=== PATIENT | male | born 1960 | race African-American/Black ===

== ENCOUNTER 2017-01-04 22:12 | Emergency (ER) | payer OTHER, SELFPAY ==
[2017-01-05 00:28] LABS: #Basophils 0.1 thou/uL (0.0-0.2); #Eosinphils 0.1 thou/uL (0.0-0.7); #Lymphocytes 1.8 thou/uL (1.20-3.40); #Monocytes 0.4 thou/uL (0.11-0.59); #Neutrophils 3.4 thou/uL (1.40-6.50); %Basophils 1.4 % (0.0-1.0); %Eosinophils 1.9 % (0.0-10.0); %Lymphocytes 31.2 % (21.0-51.0); %Monocytes 7.5 % (0.0-10.0); Hematocrit 32.2 % (42.0-52.0); Red Blood Cell (RBC) Count 3.16 mill/uL (4.70-6.10); White Blood Cell (WBC) Count 5.9 thou/uL (4.8-10.8)
[2017-01-05 00:39] LABS: ALT (SGPT) 12 U/L (8-55); AST (SGOT) 24 U/L (5-34); Alkaline Phosphatase 52 U/L (40-150); Bilirubin, Direct 0.1 mg/dL (0.1-0.3); Bilirubin, Total 0.7 mg/dL (0.2-1.2); Protein, Total 6.7 g/dL (6.0-8.3)
[2017-01-05 00:41] LABS: Lactic Acid - Sepsis 3.4 mmol/L (0.5-2.2)
[2017-01-05 00:43] LABS: ALT (SGPT) 11 U/L (8-55); AST (SGOT) 24 U/L (5-34); Alkaline Phosphatase 51 U/L (40-150); Anion Gap 18 mmol/L (10-20); BUN (Urea Nitrogen) 13 mg/dL (8.4-25.7); Bilirubin, Total 0.7 mg/dL (0.2-1.2); Calc. Creatinine Clearance 0 mL/min (70-130); Calcium 8.7 mg/dL (7.8-10.44); Carbon Dioxide 23 mmol/L (22-29); Chloride 106 mmol/L (98-107); Estimated GFR-MDRD Greater than 90; Globulin 2.9 g/dL (2.4-3.5); Lipase 57 U/L (8-78); Protein, Total 6.6 g/dL (6.0-8.3)
[2017-01-05 00:52] LABS: Troponin I 0.012 ng/mL (< 0.028)
[2017-01-05 03:03] LABS: Bilirubin Negative (Negative); Blood, Urine Negative (Negative); Glucose, Urine (Dipstick) Negative (Negative); Ketone, Urine Negative (Negative); Nitrite Negative (Negative); Protein, Urine (Dipstick) Negative (Neg-Trace)
[2017-01-05 03:24] LABS: Lactic Acid - Sepsis 2.9 mmol/L (0.5-2.2)
--- NOTE | 2017-01-05 08:09 | CT ---
PRELIMINARY REPORT/[facility]/EMERGENCY AFTER HOURS PROCEDURE: EXAM: CT Abdomen and Pelvis With Intravenous Contrast CLINICAL HISTORY: 56 years old, male; Pain; Abdominal pain; Generalized; Patient HX: M56 presents to ed C/O abd pain, onset this afternoon. Pt notes ETOH, last was earlier today x 2-3 drinks. Pt also complains of HTN. Denies bm changes, HX of tobacco use (x 4 daily), cp, drug use, hematochezia, hematuria. ; Additiona l info: Pt uncooperative for exam TECHNIQUE: Axial computed tomography images of the abdomen and pelvis with intravenous contrast. Coronal reformatted images were created and reviewed. CONTRAST: 95 mL of ISOVUE 370 administered intravenously. COMPARISON: No relevant prior studies available. FINDINGS: Lower thorax: No acute findings. ABDOMEN: Liver: Mild hepatomegaly. Gallbladder and bile ducts: Normal. Pancreas: Normal. Spleen: Normal. Adrenals: Normal. Kidneys and ureters: Normal. Stomach and bowel: Multiple nondilated, gas and fluid-filled loops of small bowel, which is a nonspe cific finding, but can be seen with enteritis. Appendix: Appendix normal. PELVIS: Bladder: Normal. Reproductive: Normal as visualized. ABDOMEN and PELVIS: Intraperitoneal space: Normal. No free air. No significant fluid collection. Bones/joints: Changes of prior sternotomy. Degenerative changes of the hips and sacroiliac joints. M ultilevel thoraco-lumbar spine degenerative changes. No acute fracture. No dislocation. Soft tissues: Normal. Vasculature: Atherosclerotic disease of the abdominal aorta and iliac arteries. Multiple phleboliths within the pelvis. No abdominal aortic aneurysm. Lymph nodes: Normal. IMPRESSION: 1. Multiple nondilated, gas and fluid-filled loops of small bowel, which is a nonspecific finding, b ut can be seen with enteritis. 2. Incidental/non-acute findings are described above. Thank you for allowing us to participate in the care of your patient. Dictated and Authenticated by: Anson Tatum MD 01/05/2017 1:29 AM Central Time ([place] \[place]\ [place]) FINAL REPORT EMERGENT AFTER HOURS CT ABDOMEN AND PELVIS WITH IV CONTRAST: DATE: 01/05/17. HISTORY: Abdominal pain with onset of symptoms this afternoon. COMPARISON: Noncontrast CT on 08/13/14. IMPRESSION: 1. No acute findings are seen in the abdomen or pelvis. 2. The appendix is visualized and normal in caliber and filled with gas without CT evidence of appe ndicitis. 3. Nonspecific fluid-filled loops of small bowel. There is no evidence of a bowel obstruction. 4. Vascular calcifications in the abdominal aorta and iliac arteries. 5. Findings are in agreement with the preliminary report by [facility]. POS: [facility]
[2017-01-05] MEDS ORDERED: ISOVUE-370 76%-LOCM 1 ML ONE (13:47)
== END 2017-01-05 03:40 | disposition home or self-care (01) ==
LOC: ERS 22:12
DX: R10.9 Unspecified abdominal pain (principal); I10 Essential (primary) hypertension; F17.210 Nicotine dependence, cigarettes, uncomplicated
CPT/HCPCS: 36415; 74177; 80053; 81003; 82553; 83605; 83690; 84484; 85025; 87086; 93005; 96360

== ENCOUNTER 2017-02-17 18:27 | Emergency (ER) | payer SELFPAY ==
[2017-02-17] MEDS ORDERED: Lorazepam 2 MG/ML VIAL ONE (18:52)
[2017-02-17 18:56] LABS: #Basophils 0.1 thou/uL (0.0-0.2); #Eosinphils 0.1 thou/uL (0.0-0.7); #Lymphocytes 2.2 thou/uL (1.20-3.40); #Monocytes 0.7 thou/uL (0.11-0.59); #Neutrophils 4.1 thou/uL (1.40-6.50); %Eosinophils 1.6 % (0.0-10.0); %Monocytes 10.2 % (0.0-10.0); Hematocrit 32.8 % (42.0-52.0); Mean Platelet Volume 6.1 fL (7.4-10.4); Red Blood Cell (RBC) Count 3.21 mill/uL (4.70-6.10); White Blood Cell (WBC) Count 7.2 thou/uL (4.8-10.8)
[2017-02-17 19:28] LABS: Troponin I 0.017 ng/mL (< 0.028)
[2017-02-17 19:31] LABS: ALT (SGPT) 8 U/L (8-55); AST (SGOT) 23 U/L (5-34); Alkaline Phosphatase 53 U/L (40-150); Anion Gap 16 mmol/L (10-20); BUN (Urea Nitrogen) 12 mg/dL (8.4-25.7); Bilirubin, Total 0.6 mg/dL (0.2-1.2); CK (CPK) 243 U/L (30-200); Calc. Creatinine Clearance 0 mL/min (70-130); Calcium 9.3 mg/dL (7.8-10.44); Carbon Dioxide 21 mmol/L (22-29); Chloride 105 mmol/L (98-107); Estimated GFR-MDRD 82; Protein, Total 6.9 g/dL (6.0-8.3)
--- NOTE | 2017-02-17 19:39 | RAD ---
AP VIEW OF THE CHEST 02/17/17 INDICATION: Chest pain. IMPRESSION: No acute cardiopulmonary abnormality. Stable postoperative changes of the chest when compared to the prior dated 05/24/16. POS: [facility]
[2017-02-17 21:29] LABS: Troponin I 0.023 ng/mL (< 0.028)
--- NOTE | 2017-02-27 13:24 | EKG ---
Test Reason : Blood Pressure : / mmHG Vent. Rate : 117 BPM Atrial Rate : 117 BPM P-R Int : 162 ms QRS Dur : 084 ms QT Int : 348 ms P-R-T Axes : 068 040 009 degrees QTc Int : 485 ms Sinus tachycardia Minimal voltage criteria for LVH, may be normal variant Borderline ECG Confirmed by TRISTA GUILLAUME ([id number]), photo editor JEAN CRAWFORD ([id number]) on 02/27/2017 1:24:09 PM Referred By: Confirmed By:TRISTA GUILLAUME
== END 2017-02-17 22:48 | disposition home or self-care (01) ==
LOC: ERS 18:27
DX: R07.2 Precordial pain (principal); F14.10 Cocaine abuse, uncomplicated; I10 Essential (primary) hypertension; F41.9 Anxiety disorder, unspecified; F32.9 Major depressive disorder, single episode, unspecified; F17.210 Nicotine dependence, cigarettes, uncomplicated; Z79.899 Other long term (current) drug therapy
CPT/HCPCS: 36415; 71010; 80053; 82550; 82553; 84484; 85025; 87389; 93005; 94760; 96361; 96374; 99406; J2060

== ENCOUNTER 2017-03-25 13:08 | Emergency (ER) | payer SELFPAY ==
[2017-03-25 13:59] LABS: #Basophils 0.1 thou/uL (0.0-0.2); #Lymphocytes 1.1 thou/uL (1.20-3.40); #Monocytes 0.6 thou/uL (0.11-0.59); #Neutrophils 4.7 thou/uL (1.40-6.50); %Eosinophils 0.7 % (0.0-10.0); %Lymphocytes 16.2 % (21.0-51.0); %Monocytes 9.4 % (0.0-10.0); %Neutrophils 72.8 % (42.0-75.0); Hemoglobin 12.2 g/dL (14.0-18.0); Mean Corpuscular HGB CONC 34.7 g/dL (32.0-36.0); Mean Corpuscular Hemoglobin 33.6 pg (27.0-31.0); Mean Corpuscular Volume 96.9 fl (80.0-94.0); Mean Platelet Volume 6.2 fL (7.4-10.4); Platelet Count 254 thou/uL (130-400); RBC Distribution Width 13.5 % (11.5-14.5); Red Blood Cell (RBC) Count 3.64 mill/uL (4.70-6.10); White Blood Cell (WBC) Count 6.5 thou/uL (4.8-10.8)
[2017-03-25 14:19] LABS: ALT (SGPT) 17 U/L (8-55); AST (SGOT) 41 U/L (5-34); Albumin 3.9 g/dL (3.5-5.0); Alcohol Less than 10 mg/dL (Less than 10); Alkaline Phosphatase 53 U/L (40-150); Anion Gap 17 mmol/L (10-20); BUN (Urea Nitrogen) 10 mg/dL (8.4-25.7); Bilirubin, Total 0.5 mg/dL (0.2-1.2); CK (CPK) 124 U/L (30-200); Calc. Creatinine Clearance 0 mL/min (70-130); Calcium 9.6 mg/dL (7.8-10.44); Carbon Dioxide 20 mmol/L (22-29); Chloride 103 mmol/L (98-107); Estimated GFR-MDRD Greater than 90; Globulin 2.9 g/dL (2.4-3.5); Glucose 134 mg/dL (70-105); Potassium 3.8 mmol/L (3.5-5.1); Protein, Total 6.8 g/dL (6.0-8.3); Sodium 136 mmol/L (136-145)
[2017-03-25 14:20] LABS: Acetaminophen Less than 6.0 mcg/mL (10.0-30.0); Alcohol Less than 10 mg/dL (Less than 10); Salicylate Less than 8.0 mg/dL (15.0-30.0)
[2017-03-25 14:23] LABS: CKMB 0.9 ng/mL (0-6.6); Troponin I 0.017 ng/mL (< 0.028)
--- NOTE | 2017-03-25 14:48 | RAD ---
FRONTAL VIEW CHEST: Comparison: 02-17-17 Indication: Altered mental status. FINDINGS: No consolidation, effusion, or pneumothorax. Stable post-surgical change. Cardiac silhouette is withi n normal in size. IMPRESSION: No focal consolidation. POS: [facility]
--- NOTE | 2017-03-25 14:54 | CT ---
HEAD CT NONCONTRAST: Indication: Hypoglycemia, altered mental status. FINDINGS: Ventricular system is normal in size. There is no intracranial hemorrhage, mass effect or midline keyla ft. Mild hypoattenuation adjacent to the left frontal horn suggests a small area of gliosis. There is a retention cyst in the posterior aspect of the sphenoid sinus. IMPRESSION: No acute intracranial abnormalities. POS: [facility]
[2017-03-25 15:48] LABS: Bilirubin Negative (Negative); Blood, Urine Negative (Negative); Clarity CLEAR (Clear); Glucose, Urine (Dipstick) Negative (Negative); Leukocyte Negative (Negative); Nitrite Negative (Negative); Protein, Urine (Dipstick) Negative (Neg-Trace); Specific Gravity, Urine 1.017 (1.002-1.036); Urobilinogen 0.2 mg/dL (0.2-1.0); pH, Urine 5.5 (5.0-9.0)
[2017-03-25 15:56] LABS: Amphetamine Not Detected (NotDetected); Barbiturates Screen Not Detected (NotDetected); Benzodiazepine Screen Not Detected (NotDetected); Cocaine Metabolite Screen Detected (NotDetected); Medtox Control Line Valid? VALID (VALID); Medtox Reader # READER 1; Methadone Not Detected (NotDetected); Methamphetamine Not Detected (NotDetected); Opiate Screen Not Detected (NotDetected); Oxycodone Screen Not Detected (NotDetected); Phencyclidine (PCP) Not Detected (NotDetected); THC/Cannabinoid Screen Not Detected (NotDetected); Tricyclic Screen Not Detected (NotDetected)
== END 2017-03-25 18:10 | disposition home or self-care (01) ==
LOC: ERS 13:08
DX: F14.10 Cocaine abuse, uncomplicated (principal); I10 Essential (primary) hypertension; F41.9 Anxiety disorder, unspecified; F32.9 Major depressive disorder, single episode, unspecified; F17.210 Nicotine dependence, cigarettes, uncomplicated
CPT/HCPCS: 36415; 51701; 70450; 71045; 80053; 80306; 80307; 81003; 82550; 82553; 84484; 85025; 93005; 96360; 96361; 99406

== ENCOUNTER 2017-05-08 03:41 | Emergency (ER) | payer SELFPAY ==
[2017-05-08] MEDS ORDERED: Albuterol Sulfate 2.5 mg/3 ml Neb ONE (04:13)
[2017-05-08 04:32] LABS: #Basophils 0.1 thou/uL (0.0-0.2); #Eosinphils 0.1 thou/uL (0.0-0.7); #Lymphocytes 1.4 thou/uL (1.20-3.40); #Monocytes 0.5 thou/uL (0.11-0.59); #Neutrophils 5.4 thou/uL (1.40-6.50); %Basophils 0.8 % (0.0-1.0); %Eosinophils 1.3 % (0.0-10.0); %Lymphocytes 18.5 % (21.0-51.0); %Monocytes 6.1 % (0.0-10.0); %Neutrophils 73.3 % (42.0-75.0); Hemoglobin 9.8 g/dL (14.0-18.0); Mean Corpuscular HGB CONC 32.4 g/dL (32.0-36.0); Mean Corpuscular Hemoglobin 29.2 pg (27.0-31.0); Mean Corpuscular Volume 90.2 fl (80.0-94.0); Mean Platelet Volume 6.7 fL (7.4-10.4); Platelet Count 358 thou/uL (130-400); RBC Distribution Width 15.7 % (11.5-14.5); Red Blood Cell (RBC) Count 3.36 mill/uL (4.70-6.10); White Blood Cell (WBC) Count 7.3 thou/uL (4.8-10.8)
[2017-05-08 04:49] LABS: PTT 33.7 SEC (22.9-36.1)
[2017-05-08 04:50] LABS: D-Dimer Test 1.41 *mcg/mL (0.27-0.43)
[2017-05-08 04:54] LABS: Anion Gap 10 mmol/L (10-20); BUN (Urea Nitrogen) 11 mg/dL (8.4-25.7); Carbon Dioxide 26 mmol/L (22-29); Chloride 106 mmol/L (98-107); Potassium 3.8 mmol/L (3.5-5.1); Sodium 138 mmol/L (136-145)
[2017-05-08 04:55] LABS: ALT (SGPT) 13 U/L (8-55); AST (SGOT) 15 U/L (5-34); Acetaminophen Less than 6.0 mcg/mL (10.0-30.0); Albumin 3.8 g/dL (3.5-5.0); Alcohol Less than 10 mg/dL (Less than 10); Alkaline Phosphatase 64 U/L (40-150); Bilirubin, Total 0.6 mg/dL (0.2-1.2); Calc. Creatinine Clearance 0 mL/min (70-130); Calcium 9.1 mg/dL (7.8-10.44); Estimated GFR-MDRD 85; Globulin 2.6 g/dL (2.4-3.5); Glucose 87 mg/dL (70-105); Protein, Total 6.4 g/dL (6.0-8.3); Salicylate Less than 8.0 mg/dL (15.0-30.0)
[2017-05-08 04:57] LABS: Troponin I 0.022 ng/mL (< 0.028)
[2017-05-08 04:59] LABS: INR-International Normal Ratio 1.1; Prothrombin Time 14.5 SEC (12.0-14.7)
[2017-05-08 07:40] LABS: CKMB 0.9 ng/mL (0-6.6); Troponin I 0.021 ng/mL (< 0.028)
--- NOTE | 2017-05-08 07:46 | RAD ---
SINGLE VIEW CHEST: Date: 05/08/17 COMPARISON: 03/25/17. HISTORY: Chest pain. FINDINGS: Single view of the chest shows a cardiomediastinal silhouette which is upper limits of normal in size . However, this has enlarged compared to the prior examination. The patient is status post sternotomy . There is no evidence of consolidation, mass, or pleural effusion. IMPRESSION: 1. No evidence of acute cardiopulmonary disease. 2. The heart is upper limits of normal in size, but has enlarged compared to the prior exam. POS: [facility]
[2017-05-08 07:55] LABS: Cocaine Metabolite Screen Detected (NotDetected); Medtox Reader # READER 1; Phencyclidine (PCP) Not Detected (NotDetected); THC/Cannabinoid Screen Not Detected (NotDetected)
[2017-05-08 07:56] LABS: Amphetamine Not Detected (NotDetected); Barbiturates Screen Not Detected (NotDetected); Benzodiazepine Screen Not Detected (NotDetected); Medtox Control Line Valid? VALID (VALID); Methadone Not Detected (NotDetected); Methamphetamine Not Detected (NotDetected); Opiate Screen Not Detected (NotDetected); Oxycodone Screen Not Detected (NotDetected); Tricyclic Screen Not Detected (NotDetected)
--- NOTE | 2017-05-08 08:14 | CT ---
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 Pt states that he was lying in bed trying to sleep but was un able to sleep due to pain. On ems arrival, pt's initial BP was 197/138. After x3 sprays of nitro pt B P improved to 114/75. Pt states he is an occasional cocaine user, states he last smoked cocaine tonig ht. Pt has h/o HTN for which he takes lisinopril. Pt is a smoker, 3-5 cigarettes per day. TECHNIQUE: Axial computed tomographic angiography images of the chest with intravenous contrast using pulmonary embolism protocol. CONTRAST: 100 mL of ISOVUE administered intravenously. COMPARISON: No relevant prior studies available. FINDINGS: Pulmonary arteries: Some motion. No pulmonary embolus identified. Aorta: No acute findings. No thoracic aortic aneurysm. Lungs: Mild diffuse interlobular septal thickening. Peribronchial thickening and mild ground glass at tenuation more prominent dependently. No mass or consolidation. Pleural space: Small bilateral pleural effusions. Heart: Mildly enlarged. Few coronary calcifications. Minimal pericardial effusion. Bones/joints: No acute fracture. No dislocation. Soft tissues: Unremarkable. Lymph nodes: Unremarkable. No enlarged lymph nodes. IMPRESSION: Small bilateral pleural effusions and interstitial densities suggestive of edema. Thank you for allowing us to participate in the care of your patient. Dictated and Authenticated by: Cody Guillory MD 05/08/2017 6:56 AM Central Time ([place] & [place]) FINAL REPORT CT PULMONARY ANGIOGRAM WITH IV CONTRAST AND 3D POSTPROCESSING: Date: 05/08/17 FINDINGS/IMPRESSION: I agree with the preliminary report given by Dr. Cody Guillory of [facility]. POS: [facility]
[2017-05-08] MEDS ORDERED: ISOVUE-370 76%-LOCM 1 ML ONE (13:32)
--- NOTE | 2017-05-12 17:05 | EKG ---
Test Reason : CRISTY
== END 2017-05-08 09:39 | disposition home or self-care (01) ==
LOC: ERS 03:41
DX: R07.9 Chest pain, unspecified (principal); F14.10 Cocaine abuse, uncomplicated; I10 Essential (primary) hypertension; F41.9 Anxiety disorder, unspecified; F32.9 Major depressive disorder, single episode, unspecified; F17.210 Nicotine dependence, cigarettes, uncomplicated; G89.29 Other chronic pain; Z79.899 Other long term (current) drug therapy; Z71.6 Tobacco abuse counseling
CPT/HCPCS: 36415; 71045; 71275; 80053; 80306; 80307; 82553; 83880; 84443; 84484; 85025; 85379; 85610; 85730; 93005; 94640; 99406; J7611

== ENCOUNTER 2017-05-22 03:24 | Emergency (ER) | payer SELFPAY ==
--- NOTE | 2017-05-22 07:53 | RAD ---
PORTABLE CHEST ONE VIEW: Date: 05-22-17 Time: 4:09 a.m. History: Dyspnea. Comparison: 05-08-17 FINDINGS: There are changes of median sternotomy. Heart size is within upper limits of normal. The lungs are ex panded without lobar consolidation, pneumothorax, or pleural effusions. IMPRESSION: Stable exam. No acute process. POS: [facility]
--- NOTE | 2017-06-02 11:45 | EKG ---
Test Reason : SOB Blood Pressure : / mmHG Vent. Rate : 107 BPM Atrial Rate : 107 BPM P-R Int : 154 ms QRS Dur : 138 ms QT Int : 384 ms P-R-T Axes : 049 028 139 degrees QTc Int : 512 ms Sinus tachycardia Possible Left atrial enlargement Left bundle branch block Abnormal ECG Confirmed by SANJAY VALENCIA, DINORA Guerrero ([id number]), visual effects editor JEAN CRAWFORD ([id number]) on 06/02/2017 11:44:21 AM Referred By: NARCISO GRACE Confirmed By:DINORA GRACE MD
== END 2017-05-22 05:40 | disposition home or self-care (01) ==
LOC: ERS 03:24
DX: J45.909 Unspecified asthma, uncomplicated (principal); F14.10 Cocaine abuse, uncomplicated; K59.00 Constipation, unspecified; I10 Essential (primary) hypertension; F41.9 Anxiety disorder, unspecified; F32.9 Major depressive disorder, single episode, unspecified; F17.210 Nicotine dependence, cigarettes, uncomplicated
CPT/HCPCS: 71045; 93005; 94640; 94760; 99406; J7620

== ENCOUNTER 2017-06-11 09:13 | Emergency (ER) | payer SELFPAY ==
[2017-06-11 10:18] LABS: #Eosinphils 0.1 thou/uL (0.0-0.7); #Lymphocytes 1.1 thou/uL (1.20-3.40); #Monocytes 0.3 thou/uL (0.11-0.59); #Neutrophils 4.5 thou/uL (1.40-6.50); %Basophils 0.6 % (0.0-1.0); %Eosinophils 1.3 % (0.0-10.0); %Lymphocytes 18.5 % (21.0-51.0); %Monocytes 4.5 % (0.0-10.0); %Neutrophils 75.1 % (42.0-75.0); Hemoglobin 9.6 g/dL (14.0-18.0); Mean Corpuscular HGB CONC 30.3 g/dL (32.0-36.0); Mean Corpuscular Hemoglobin 25.5 pg (27.0-31.0); Mean Corpuscular Volume 84.2 fl (80.0-94.0); Mean Platelet Volume 7.4 fL (7.4-10.4); Platelet Count 332 thou/uL (130-400); RBC Distribution Width 15.7 % (11.5-14.5); Red Blood Cell (RBC) Count 3.78 mill/uL (4.70-6.10)
[2017-06-11 10:34] LABS: ALT (SGPT) 32 U/L (8-55); AST (SGOT) 28 U/L (5-34); Albumin 3.8 g/dL (3.5-5.0); Alkaline Phosphatase 77 U/L (40-150); Anion Gap 12 mmol/L (10-20); BUN (Urea Nitrogen) 18 mg/dL (8.4-25.7); Bilirubin, Total 0.6 mg/dL (0.2-1.2); CK (CPK) 99 U/L (30-200); Calc. Creatinine Clearance 0 mL/min (70-130); Calcium 9.1 mg/dL (7.8-10.44); Carbon Dioxide 21 mmol/L (22-29); Chloride 107 mmol/L (98-107); Estimated GFR-MDRD 72; Globulin 2.4 g/dL (2.4-3.5); Glucose 99 mg/dL (70-105); Lipase 15 U/L (8-78); Potassium 4.4 mmol/L (3.5-5.1); Protein, Total 6.2 g/dL (6.0-8.3); Sodium 136 mmol/L (136-145)
[2017-06-11 10:37] LABS: CKMB 1.2 ng/mL (0-6.6); Troponin I 0.024 ng/mL (< 0.028)
--- NOTE | 2017-06-11 10:53 | RAD ---
CHEST TWO VIEWS: HISTORY: Chest pain. Dyspnea. COMPARISON: 05/22/2017 FINDINGS: The cardiac silhouette is enlarged. The pulmonary vasculature remain slightly engorged with reticulo nodular interstitial prominence throughout each lung. The mediastinum is midline with postoperative changes. IMPRESSION: Cardiomegaly and pulmonary vascular congestion are similar in appearance to the previous exam. POS: [facility]
--- NOTE | 2017-06-11 12:03 | CT ---
CT ABDOMEN AND PELVIS WITH IV CONTRAST: 06/11/2017 HISTORY: Chest pain and shortness of breath. Subjective fever and diaphoresis while sleeping. The patient al so reports abdominal pain. COMPARISON: 01/05/2017 FINDINGS: There are small bilateral pleural effusions and associated passive atelectasis. The heart is enlarged. There is suggestion of a tiny pericardial effusion, partially imaged. The liver, spleen, pancreas, bilateral adrenal glands, kidneys, and urinary bladder, as well as the o pacified small bowel, demonstrate a normal CT appearance for the arterial phase of imaging. The appendix is visualized and gas-filled and is normal in caliber. A small amount of retained material is seen in the colon. Vascular calcifications are seen in the abdominal aorta and in the iliac arteries. There is a mildly prominent left periaortic lymph node, measuring 1.2 cm in short axis dimension, of uncertain etiolog y or significance. No additional enlarged lymph nodes are seen by CT size criteria. IMPRESSION: 1. Tiny bilateral pleural effusions. 2. Cardiomegaly with tiny pericardial effusion partially imaged. 3. Mildly prominent left paraaortic lymph node, of uncertain etiology or clinical significance. 4. No CT evidence of appendicitis. 5. Vascular calcifications. 6. The liver is enlarged in craniocaudal dimensions, measuring 20 cm, but this could be related to a normal variant as opposed to hepatomegaly. POS: [facility]
[2017-06-11] MEDS ORDERED: Iopamidol 370 76% 50 ML VIAL FS ONE (13:12)
[2017-06-11] MEDS ORDERED: ISOVUE-370 76%-LOCM 1 ML ONE (13:12)
== END 2017-06-11 12:45 | disposition home or self-care (01) ==
LOC: ERS 09:13
DX: R07.9 Chest pain, unspecified (principal); I10 Essential (primary) hypertension; F41.9 Anxiety disorder, unspecified; F32.9 Major depressive disorder, single episode, unspecified; F17.210 Nicotine dependence, cigarettes, uncomplicated
CPT/HCPCS: 36415; 71046; 74177; 80053; 82553; 83605; 83690; 84484; 85025; 93005

== ENCOUNTER 2017-06-30 10:56 | Emergency (ER) | payer SELFPAY ==
[2017-06-30 11:27] LABS: #Eosinphils 0.1 thou/uL (0.0-0.7); #Lymphocytes 1.6 thou/uL (1.20-3.40); #Monocytes 0.6 thou/uL (0.11-0.59); #Neutrophils 4.1 thou/uL (1.40-6.50); %Basophils 0.7 % (0.0-1.0); %Eosinophils 1.2 % (0.0-10.0); %Lymphocytes 24.6 % (21.0-51.0); %Monocytes 8.9 % (0.0-10.0); %Neutrophils 64.5 % (42.0-75.0); Hemoglobin 9.6 g/dL (14.0-18.0); Mean Corpuscular HGB CONC 31.1 g/dL (32.0-36.0); Mean Corpuscular Hemoglobin 23.9 pg (27.0-31.0); Mean Corpuscular Volume 76.8 fl (80.0-94.0); Mean Platelet Volume 8.3 fL (7.4-10.4); Platelet Count 279 thou/uL (130-400); RBC Distribution Width 16.7 % (11.5-14.5); Red Blood Cell (RBC) Count 4.03 mill/uL (4.70-6.10); White Blood Cell (WBC) Count 6.3 thou/uL (4.8-10.8)
[2017-06-30 11:47] LABS: ALT (SGPT) 42 U/L (8-55); AST (SGOT) 50 U/L (5-34); Alkaline Phosphatase 87 U/L (40-150); Anion Gap 16 mmol/L (10-20); BUN (Urea Nitrogen) 19 mg/dL (8.4-25.7); Bilirubin, Total 0.7 mg/dL (0.2-1.2); Calc. Creatinine Clearance 0 mL/min (70-130); Calcium 9.3 mg/dL (7.8-10.44); Carbon Dioxide 20 mmol/L (22-29); Chloride 104 mmol/L (98-107); Estimated GFR-MDRD 59; Globulin 2.7 g/dL (2.4-3.5); Glucose 88 mg/dL (70-105); Lipase 9 U/L (8-78); Potassium 4.5 mmol/L (3.5-5.1); Protein, Total 6.7 g/dL (6.0-8.3); Sodium 135 mmol/L (136-145)
[2017-06-30 11:57] LABS: CKMB 1.2 ng/mL (0-6.6); Troponin I 0.015 ng/mL (< 0.028)
[2017-06-30] MEDS ORDERED: Dicyclomine 20 MG TAB ONE (12:08)
== END 2017-06-30 12:48 | disposition home or self-care (01) ==
LOC: ERS 10:56
DX: R10.10 Upper abdominal pain, unspecified (principal); I10 Essential (primary) hypertension; F41.9 Anxiety disorder, unspecified; F32.9 Major depressive disorder, single episode, unspecified; F17.210 Nicotine dependence, cigarettes, uncomplicated
CPT/HCPCS: 80053; 82553; 83690; 84484; 85025; 93005; 96360

== ENCOUNTER 2017-07-07 09:59 | Emergency (ER) | payer SELFPAY ==
[2017-07-07 12:24] LABS: Bilirubin Negative (Negative); Blood, Urine Negative (Negative); Clarity CLEAR (Clear); Glucose, Urine (Dipstick) Negative (Negative); Leukocyte Negative (Negative); Nitrite Negative (Negative); Protein, Urine (Dipstick) Trace mg/dL (Neg-Trace)
== END 2017-07-07 13:32 | disposition home or self-care (01) ==
LOC: ERS 09:59
DX: R30.0 Dysuria (principal); K59.00 Constipation, unspecified; I10 Essential (primary) hypertension; F17.210 Nicotine dependence, cigarettes, uncomplicated; Z79.891 Long term (current) use of opiate analgesic; Z79.899 Other long term (current) drug therapy
CPT/HCPCS: 81003; 99284

== ENCOUNTER 2017-07-11 10:15 | Emergency (ER) | payer SELFPAY ==
[2017-07-11] MEDS ORDERED: Ondansetron ODT 8 MG TAB ONE (10:46)
[2017-07-11 11:05] LABS: #Basophils 0.1 thou/uL (0.0-0.2); #Eosinphils 0.1 thou/uL (0.0-0.7); #Lymphocytes 1.5 thou/uL (1.20-3.40); #Monocytes 0.6 thou/uL (0.11-0.59); #Neutrophils 4.7 thou/uL (1.40-6.50); %Eosinophils 1.3 % (0.0-10.0); %Lymphocytes 21.3 % (21.0-51.0); %Monocytes 8.1 % (0.0-10.0); %Neutrophils 68.3 % (42.0-75.0); Hemoglobin 9.7 g/dL (14.0-18.0); Mean Corpuscular HGB CONC 29.7 g/dL (32.0-36.0); Mean Corpuscular Hemoglobin 23.3 pg (27.0-31.0); Mean Corpuscular Volume 78.4 fl (80.0-94.0); Mean Platelet Volume 8.8 fL (7.4-10.4); Platelet Count 300 thou/uL (130-400); RBC Distribution Width 17.3 % (11.5-14.5); Red Blood Cell (RBC) Count 4.16 mill/uL (4.70-6.10); White Blood Cell (WBC) Count 6.9 thou/uL (4.8-10.8)
[2017-07-11 11:22] LABS: ALT (SGPT) 31 U/L (8-55); AST (SGOT) 25 U/L (5-34); Acetaminophen Less than 6.0 mcg/mL (10.0-30.0); Albumin 3.7 g/dL (3.5-5.0); Alcohol Less than 10 mg/dL (Less than 10); Alkaline Phosphatase 84 U/L (40-150); Anion Gap 14 mmol/L (10-20); BUN (Urea Nitrogen) 14 mg/dL (8.4-25.7); Bilirubin, Total 1.4 mg/dL (0.2-1.2); CK (CPK) 69 U/L (30-200); Calc. Creatinine Clearance 0 mL/min (70-130); Calcium 8.9 mg/dL (7.8-10.44); Carbon Dioxide 24 mmol/L (22-29); Chloride 103 mmol/L (98-107); Estimated GFR-MDRD 74; Globulin 2.6 g/dL (2.4-3.5); Glucose 87 mg/dL (70-105); Lipase 23 U/L (8-78); Potassium 3.6 mmol/L (3.5-5.1); Protein, Total 6.3 g/dL (6.0-8.3); Salicylate Less than 8.0 mg/dL (15.0-30.0); Sodium 137 mmol/L (136-145)
[2017-07-11 11:26] LABS: CKMB 0.6 ng/mL (0-6.6); Troponin I 0.014 ng/mL (< 0.028)
[2017-07-11 11:46] LABS: Hypochromia MODERATE=16-30 cells (100X) (0-5/hpf); MDiff Complete? YES; Microcytosis MODERATE=15-30 cells (100X) (0-5/hpf); Polychromasia SLIGHT = 2-3 cells (100X) (0-2/hpf)
[2017-07-11 12:05] LABS: Amphetamine Not Detected (NotDetected); Barbiturates Screen Not Detected (NotDetected); Benzodiazepine Screen Not Detected (NotDetected); Cocaine Metabolite Screen Detected (NotDetected); Medtox Control Line Valid? VALID (VALID); Medtox Reader # READER 1; Methadone Not Detected (NotDetected); Methamphetamine Not Detected (NotDetected); Opiate Screen Not Detected (NotDetected); Oxycodone Screen Not Detected (NotDetected); Phencyclidine (PCP) Not Detected (NotDetected); THC/Cannabinoid Screen Not Detected (NotDetected); Tricyclic Screen Not Detected (NotDetected)
[2017-07-11 12:08] LABS: Bilirubin Small (Negative); Blood, Urine Negative (Negative); Clarity CLEAR (Clear); Glucose, Urine (Dipstick) Negative (Negative); Leukocyte Small (Negative); Nitrite Positive (Negative); Protein, Urine (Dipstick) 30 mg/dL (Neg-Trace); Specific Gravity, Urine 1.023 (1.002-1.036); pH, Urine 5.5 (5.0-9.0)
[2017-07-11 12:14] LABS: Bacteria/HPF None Seen HPF (None Seen); Hyaline Casts/LPF 0-3 HYALINE CAST LPF (0-3 Hyaline); RBC/HPF 0-3 HPF (0-3); Squamous Epithelial 0-3 HPF (0-3); WBC/HPF 0-3 HPF (0-3)
--- NOTE | 2017-07-11 13:13 | CT ---
CT ABDOMEN AND PELVIS WITH IV CONTRAST: 07/11/2017 PROVIDED CLINICAL HISTORY: Abdominal pain. COMPARISON: 06/11/2017 FINDINGS: Interval development of pericardial effusion. Interval increase in size of bilateral pleural effusio ns. Interval development of free intraperitoneal fluid, mild-moderate. The liver remains enlarged. The spleen, pancreas, and kidneys appear unremarkable. The examination was performed primarily with in the arterial phase and, thus, assessment of the patency of the portal and mesenteric venous struct ures is not possible. There is a small focus of increased density present within the right paracolic gutter, measuring abou t 6 mm, which is not definitely seen on the prior examination. The etiology for this is not complete ly certain on the basis of this study. The visualized portions of the appendix appear normal. There is no bowel dilatation or pneumoperitoneum evident. Vascular calcifications are seen. The oss eous structures demonstrate no concerning osteoblastic or osteolytic lesions. IMPRESSION: 1. Interval development of pericardial effusion and ascites with slight increase in bilateral pleura l effusions. 2. Peritoneal calcification measuring 6 mm, in the right paracolic gutter, which was not seen on handy or imaging. The etiology and significance of this finding is not completely certain. POS: [facility]
[2017-07-11] MEDS ORDERED: ISOVUE-370 76%-LOCM 1 ML ONE (15:03)
[2017-07-11] MEDS ORDERED: Iopamidol 370 76% 50 ML VIAL FS ONE (15:03)
== END 2017-07-11 14:53 | disposition home or self-care (01) ==
LOC: ERS 10:15
DX: R18.8 Other ascites (principal); R10.31 Right lower quadrant pain; I10 Essential (primary) hypertension; F41.9 Anxiety disorder, unspecified; F32.9 Major depressive disorder, single episode, unspecified; F17.210 Nicotine dependence, cigarettes, uncomplicated; Z79.899 Other long term (current) drug therapy
CPT/HCPCS: 36415; 74177; 80053; 80306; 80307; 81003; 81015; 82553; 83690; 84484; 85025; 96360; 96361

== ENCOUNTER 2017-07-18 05:58 | Emergency (ER) | payer SELFPAY ==
[2017-07-18 07:02] LABS: #Lymphocytes 1.6 thou/uL (1.20-3.40); #Monocytes 0.5 thou/uL (0.11-0.59); %Basophils 0.5 % (0.0-1.0); %Eosinophils 0.6 % (0.0-10.0); %Lymphocytes 19.4 % (21.0-51.0); %Neutrophils 73.5 % (42.0-75.0); Hemoglobin 9.1 g/dL (14.0-18.0); Mean Corpuscular HGB CONC 30.2 g/dL (32.0-36.0); Mean Corpuscular Volume 76.2 fl (80.0-94.0); Mean Platelet Volume 7.9 fL (7.4-10.4); Platelet Count 336 thou/uL (130-400); RBC Distribution Width 18.5 % (11.5-14.5); Red Blood Cell (RBC) Count 3.95 mill/uL (4.70-6.10); White Blood Cell (WBC) Count 8.2 thou/uL (4.8-10.8)
[2017-07-18] MEDS ORDERED: Pantoprazole 40 MG VIAL ONE (07:02)
[2017-07-18] MEDS ORDERED: Ondansetron ODT 4 MG TAB ONE (07:02)
[2017-07-18 07:27] LABS: ALT (SGPT) 28 U/L (8-55); AST (SGOT) 20 U/L (5-34); Albumin 3.7 g/dL (3.5-5.0); Alkaline Phosphatase 81 U/L (40-150); Anion Gap 13 mmol/L (10-20); Bilirubin, Total 0.9 mg/dL (0.2-1.2); Calc. Creatinine Clearance 0 mL/min (70-130); Calcium 8.8 mg/dL (7.8-10.44); Carbon Dioxide 27 mmol/L (22-29); Chloride 102 mmol/L (98-107); Estimated GFR-MDRD 61; Globulin 2.5 g/dL (2.4-3.5); Glucose 100 mg/dL (70-105); Lipase 19 U/L (8-78); Potassium 3.7 mmol/L (3.5-5.1); Protein, Total 6.2 g/dL (6.0-8.3); Sodium 138 mmol/L (136-145)
[2017-07-18 07:29] LABS: CKMB 0.9 ng/mL (0-6.6); Troponin I 0.019 ng/mL (< 0.028)
[2017-07-18 08:04] LABS: BUN (Urea Nitrogen) 21 mg/dL (8.4-25.7)
--- NOTE | 2017-07-18 09:02 | CT ---
CT ABDOMEN AND PELVIS WITH IV CONTRAST: HISTORY: Abdominal pain. FINDINGS: Comparison is made with the exam of 07/11/17. Pericardial effusion is improved. There is a focal patchy area of [id number] enhancement in the s ubcapsular aspect of the right lobe of the liver which was not seen on the previous study. Etiology is uncertain but likely represents vascular variant. No free air is seen. Ascites is again noted. The peritoneal calcification measuring 6 mm in the right pericolic gutter is currently seen in the le ft pericolic gutter. A normal-appearing appendix is present. Small right pleural effusions are agai n seen. The remainder of the exam is otherwise stable. IMPRESSION: 1. Focal non mass-like enhancement in the liver, new since 07/11/17. 2. Ascites. 3. Bilateral pleural effusions. POS: [facility]
[2017-07-18] MEDS ORDERED: ISOVUE-370 76%-LOCM 1 ML ONE (11:55)
== END 2017-07-18 11:10 | disposition home or self-care (01) ==
LOC: ERS 05:58
DX: R10.9 Unspecified abdominal pain (principal); I10 Essential (primary) hypertension; F41.9 Anxiety disorder, unspecified; F32.9 Major depressive disorder, single episode, unspecified; F17.210 Nicotine dependence, cigarettes, uncomplicated; Z79.899 Other long term (current) drug therapy
CPT/HCPCS: 36415; 74177; 80053; 82553; 83605; 83690; 84484; 85025; 93005; 96361; 96372; 96374; C9113; Q0162

== ENCOUNTER 2017-07-21 00:46 | Emergency (ER) | payer SELFPAY ==
[2017-07-21] MEDS ORDERED: Lidocaine Viscous Sol 2% 15 ml UD Cup ONE (01:38)
[2017-07-21] MEDS ORDERED: Mag-Al 1200 mg/1200 mg/30 ML UDCUP ONE (01:38)
== END 2017-07-21 01:55 | disposition home or self-care (01) ==
LOC: ERS 00:46
DX: K29.70 Gastritis, unspecified, without bleeding (principal); G89.29 Other chronic pain; I10 Essential (primary) hypertension; K59.09 Other constipation; I44.7 Left bundle-branch block, unspecified; K74.60 Unspecified cirrhosis of liver; F41.9 Anxiety disorder, unspecified; F32.9 Major depressive disorder, single episode, unspecified
CPT/HCPCS: 93005

== ENCOUNTER 2017-07-25 20:58 | Inpatient (IN) | payer SELFPAY ==
[~2017-07-25 20:58] MED LIST: ISOVUE-370 76%-LOCM 1 ML ONE
[2017-07-25 21:43] LABS: #Eosinphils 0.1 thou/uL (0.0-0.7); #Lymphocytes 1.8 thou/uL (1.20-3.40); #Monocytes 0.5 thou/uL (0.11-0.59); #Neutrophils 3.8 thou/uL (1.40-6.50); %Basophils 0.6 % (0.0-1.0); %Eosinophils 1.7 % (0.0-10.0); %Lymphocytes 28.7 % (21.0-51.0); %Monocytes 8.1 % (0.0-10.0); %Neutrophils 60.9 % (42.0-75.0); Hemoglobin 8.3 g/dL (14.0-18.0); Mean Corpuscular HGB CONC 29.2 g/dL (32.0-36.0); Mean Corpuscular Hemoglobin 22.2 pg (27.0-31.0); Mean Platelet Volume 8.2 fL (7.4-10.4); Platelet Count 305 thou/uL (130-400); RBC Distribution Width 17.9 % (11.5-14.5); Red Blood Cell (RBC) Count 3.76 mill/uL (4.70-6.10); White Blood Cell (WBC) Count 6.2 thou/uL (4.8-10.8)
[2017-07-25 21:56] LABS: Bilirubin Small (Negative); Blood, Urine Negative (Negative); Clarity CLEAR (Clear); Glucose, Urine (Dipstick) Negative (Negative); Leukocyte Negative (Negative); Nitrite Negative (Negative); Protein, Urine (Dipstick) Trace mg/dL (Neg-Trace); pH, Urine 6.5 (5.0-9.0)
[2017-07-25 22:00] LABS: ALT (SGPT) 23 U/L (8-55); AST (SGOT) 21 U/L (5-34); Albumin 3.5 g/dL (3.5-5.0); Alkaline Phosphatase 82 U/L (40-150); Anion Gap 9 mmol/L (10-20); BUN (Urea Nitrogen) 17 mg/dL (8.4-25.7); Bilirubin, Total 0.5 mg/dL (0.2-1.2); Calc. Creatinine Clearance 0 mL/min (70-130); Calcium 8.6 mg/dL (7.8-10.44); Carbon Dioxide 24 mmol/L (22-29); Chloride 108 mmol/L (98-107); Estimated GFR-MDRD 72; Globulin 2.4 g/dL (2.4-3.5); Glucose 99 mg/dL (70-105); Lipase 21 U/L (8-78); Protein, Total 5.9 g/dL (6.0-8.3); Sodium 137 mmol/L (136-145)
--- NOTE | 2017-07-25 22:04 | RAD ---
PORTABLE CHEST: 07/25/17 HISTORY: Shortness of breath. COMPARISON: 05/22/17 study. Heart size is enlarged. Postop sternotomy. The lungs are clear of infiltrates. No signs of failure. IMPRESSION: Cardiomegaly. POS: [facility]
[2017-07-25 22:05] LABS: CKMB 0.8 ng/mL (0-6.6); Troponin I 0.011 ng/mL (< 0.028)
--- NOTE | 2017-07-25 23:01 | CT ---
CT OF ABDOMEN AND PELVIS PERFORMED WITH INTRAVENOUS CONTRAST ENHANCEMENT: 07/25/17 HISTORY: Abdominal pain and distention. COMPARISON: A 07/18/17 study. The lung bases show small bilateral pleural effusions. This exam was obtained in somewhat arterial phase. The visualized liver parenchyma shows no focal abn ormalities. The spleen is within normal limits of size. The pancreas region is unremarkable. Gallblad kelli is mildly distended. There is some ascites in the gallbladder fossa and adjacent to the liver. Th ere is no significant periaortic or mesenteric adenopathy. No bowel obstruction. CT OF PELVIS PERFORMED WITH CONTRAST ENHANCEMENT: Ascites is noted. There is no evidence for adenopathy or mass. The appendix region appears unremarkab le. IMPRESSION: 1. Mild ascites with a liver measuring 21 cm in length. The spleen is within normal limits. 2. Small bilateral pleural effusions. POS: [facility]
--- NOTE | 2017-07-25 23:03 | CT ---
CT ANGIO OF CHEST PERFORMED WITH INTRAVENOUS CONTRAST ENHANCEMENT WITH 3D RECONSTRUCTIONS: 07/25/17 HISTORY: Elevated D-dimer. Shortness of breath. The lungs are clear of any infiltrative process. Small bilateral effusions are present. The heart siz e appears enlarged. There is some prevascular nodes slightly prominent, probably reactive in nature. The thoracic aorta is normal in caliber. There is good pulmonary artery opacification. There is no CT evidence for pulmonary embolus. IMPRESSION: 1. No CT evidence of pulmonary embolus. 2. Small bilateral effusions. POS: [facility]
[2017-07-25] MEDS ORDERED: Furosemide 20 MG/2 ML VIAL ONE (23:17)
[2017-07-26 01:18] LABS: Troponin I 0.017 ng/mL (< 0.028)
[2017-07-26 02:58] VITALS: BMI 25.0
[2017-07-26 04:54] LABS: Troponin I 0.021 ng/mL (< 0.028)
[2017-07-26] MEDS ORDERED: Furosemide 40 MG TAB PO SCH (10:00)
[2017-07-26] MEDS ORDERED: Lisinopril 20 MG TAB PO SCH (10:00)
[2017-07-26] MEDS ORDERED: Spironolactone 25 MG TAB PO SCH (10:00)
[2017-07-26 11:10] LABS: Troponin I 0.017 ng/mL (< 0.028)
[2017-07-26 11:25] LABS: Medtox Reader # READER 1
[2017-07-26 11:26] LABS: Amphetamine Not Detected (NotDetected); Barbiturates Screen Not Detected (NotDetected); Benzodiazepine Screen Not Detected (NotDetected); Cocaine Metabolite Screen Detected (NotDetected); Medtox Control Line Valid? VALID (VALID); Methadone Not Detected (NotDetected); Methamphetamine Not Detected (NotDetected); Opiate Screen Not Detected (NotDetected); Oxycodone Screen Not Detected (NotDetected); Phencyclidine (PCP) Not Detected (NotDetected); THC/Cannabinoid Screen Not Detected (NotDetected); Tricyclic Screen Not Detected (NotDetected)
[2017-07-26 18:52] LABS: Iron 15 ug/dL (65-175); Iron Binding Capacity, Total 480 mcg/dL (261-462)
[2017-07-26] MEDS: Acetaminophen 325 MG TAB PO PRN (20:18)
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
[2017-07-27] MEDS: Acetaminophen 325 MG TAB PO PRN ×3 (01:12→20:11)
[2017-07-27] MEDS ORDERED: Spironolactone 25 MG TAB PO SCH (08:00)
[2017-07-27] MEDS: Lisinopril 20 MG TAB PO SCH (08:38)
[2017-07-27] MEDS ORDERED: Furosemide 40 MG TAB PO SCH (09:00)
[2017-07-27] MEDS ORDERED: Furosemide 20 MG TAB PO SCH (09:00)
--- NOTE | 2017-07-27 09:32 | CON ---
DATE OF CONSULTATION: 07/27/2017 REASON FOR CONSULTATION: Congestive heart failure. HISTORY OF PRESENT ILLNESS: Mr. Rajat Sanchez is a 56-year-old gentleman who was admitted to [facility] with shortness of breath. He has shortness of breath with very minimal activity. He also feels s hort of breath even at rest and has to sit up at times. He has had sensation of fullness in his chest. He said this has been going on for months, but it is worse the last few days. During the hospitalization, he has also been found to have an iron deficien cy anemia. The patient states he drinks a few beers per day and smokes a few cigarettes per day. The patient has been in declining health. PAST MEDICAL HISTORY: Hypertension. MEDICATIONS PRIOR TO ADMISSION: 1. The patient tells me he was taking lisinopril. 2. Medicine for constipation. 3. Tylenol. 4. No other medicines, although in his home medicine lisinopril is not listed. SOCIAL HISTORY: As outlined above. FAMILY HISTORY: Noncontributory. REVIEW OF SYSTEMS: CONSTITUTIONAL: Positive for weakness and fatigue. VISION: No changes. HEARING: No changes. PULMONARY: No cough or wheezing. GASTROINTESTINAL: No nausea, vomiting, diarrhea. SKIN: No rashes. NEUROLOGIC: No unilateral weakness or numbness. PSYCHIATRIC: No unusual depression or anxiety. EXTREMITIES: The patient also complains of exertional leg pain. PHYSICAL EXAMINATION: GENERAL: This is a chronically ill-appearing gentleman, looks somewhat underweight with decreased mu scle mass. VITAL SIGNS: Blood pressure is high 152/105, pulse has been in the over 100 range, sinus tachycardia . HEENT: Eyes; sclerae nonicteric. NECK: Neck veins are markedly distended up to the angle of the jaw. Carotid had normal upstrokes. LUNGS: Clear anteriorly and laterally. CARDIAC: Distant. I do not hear murmur, rub or gallop. ABDOMEN: Soft, nontender. EXTREMITIES: No clubbing or cyanosis. There is only minimal edema. Femoral pulses are present. Th e left side is stronger than the right. Pedal pulses I do not palpate. PERTINENT LABORATORY AND X-RAY FINDINGS: Hemoglobin is 8.3. Iron studies were low as his iron was 1 5, ferritin 18.7 indicating iron deficiency anemia. BNP 2760. Creatinine is 1.26, potassium is 4.0. EKG: Left bundle branch block pattern with sinus rhythm and sinus tachycardia. The QRS duration 140 on one measurement, 146 and another measurement. The chest x-ray shows massive cardiomegaly with clear lung yi. ASSESSMENT: 1. Congestive heart failure, almost certainly systolic, acute on chronic, echocardiogram pending. 2. Left bundle branch block. 3. Likely peripheral vascular disease. 4. Smoking. 5. Alcohol. 6. Likely has hepatic congestion. 7. Iron deficiency anemia. The patient is currently not compensated. PLAN: 1. Add carvedilol. 2. Echocardiogram pending. 3. Lisinopril. 4. Intravenous diuretics. 5. Replete iron stores. 6. Will likely need colonoscopy and endoscopy. 7. Ultimately consideration for biventricular pacemaker defibrillator. The patient, as mentioned, is not compensated presently, not ready to go home. Intermittently the gentry tellez still has a significant tachycardia compatible with decompensated heart failure.
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
[2017-07-27 10:40] LABS: Troponin I 0.018 ng/mL (< 0.028)
[2017-07-27] MEDS ORDERED: Furosemide 20 MG/2 ML VIAL SLOW IVP SCH (10:45)
[2017-07-27] MEDS ORDERED: Sodium Ferric Gluconate 250 MG in Sodium Chloride 0.9% 250 ML 250 ML IVPB SCH (11:00)
[2017-07-27] MEDS: Furosemide 20 MG/2 ML VIAL SLOW IVP SCH (14:56)
[2017-07-27] MEDS: Carvedilol 3.125 MG TAB PO SCH (17:45)
--- NOTE | 2017-07-27 18:12 | PRG ---
DATE OF SERVICE: 07/27/2017 SUBJECTIVE: Mr. Sanchez has had no overt GI bleeding. He is tolerating his diet well. He has had shortness of breath with minimal exertion. OBJECTIVE: VITAL SIGNS: Temperature 97.7, pulse 111, blood pressure 137/97. GENERAL: He is in no acute distress, awake and alert. LUNGS: Clear to auscultation bilaterally. HEART: S1, S2. ABDOMEN: Soft, nontender. Bowel sounds are present. EXTREMITIES: 1+ pitting lower extremity edema. LABORATORY DATA: Hemoglobin is 8.3, ferritin 18.7, iron 15, TIBC 480. IMPRESSION AND PLAN: 1. Iron deficiency anemia. He has received IV iron infusion today. 2. Congestive heart failure. He has had polysubstance abuse including cocaine. His ejection fracti on was estimated at 15% to 20%. His BNP is elevated and on discussion with Dr. Spear, he is not rip quately compensated at this time. I will follow back up on Sunday and once he is okay from a cardiac standpoint, we can plan EGD and colonoscopy for evaluation of his iron deficiency anemia.
[2017-07-28] MEDS: Furosemide 20 MG/2 ML VIAL SLOW IVP SCH ×2 (05:09→13:00)
[2017-07-28 06:06] LABS: Anion Gap 13 mmol/L (10-20); BUN (Urea Nitrogen) 28 mg/dL (8.4-25.7); Calc. Creatinine Clearance 54 mL/min (70-130); Calcium 8.6 mg/dL (7.8-10.44); Carbon Dioxide 22 mmol/L (22-29); Chloride 105 mmol/L (98-107); Estimated GFR-MDRD 53; Glucose 81 mg/dL (70-105); Potassium 4.3 mmol/L (3.5-5.1)
[2017-07-28 06:16] LABS: #Basophils 0.1 thou/uL (0.0-0.2); #Eosinphils 0.1 thou/uL (0.0-0.7); #Lymphocytes 1.6 thou/uL (1.20-3.40); #Monocytes 0.5 thou/uL (0.11-0.59); #Neutrophils 4.5 thou/uL (1.40-6.50); %Basophils 0.9 % (0.0-1.0); %Eosinophils 1.3 % (0.0-10.0); %Lymphocytes 23.3 % (21.0-51.0); %Monocytes 7.7 % (0.0-10.0); %Neutrophils 66.7 % (42.0-75.0); Hemoglobin 8.5 g/dL (14.0-18.0); Mean Corpuscular HGB CONC 29.6 g/dL (32.0-36.0); Mean Corpuscular Hemoglobin 22.4 pg (27.0-31.0); Mean Corpuscular Volume 75.6 fl (80.0-94.0); Mean Platelet Volume 9.1 fL (7.4-10.4); Platelet Count 288 thou/uL (130-400); RBC Distribution Width 18.2 % (11.5-14.5); Red Blood Cell (RBC) Count 3.79 mill/uL (4.70-6.10); White Blood Cell (WBC) Count 6.7 thou/uL (4.8-10.8)
[2017-07-28 06:21] LABS: Sodium 136 mmol/L (136-145)
[2017-07-28] MEDS ORDERED: Sodium Chloride 0.9% 10 ML ONE (07:32)
[2017-07-28] MEDS: Lisinopril 20 MG TAB PO SCH (09:20)
[2017-07-28] MEDS: Carvedilol 3.125 MG TAB PO SCH (09:20)
--- NOTE | 2017-07-28 11:31 | PDOC.CTH ---
Cardiology Progress Note - Subjective Awake, lying in bed. Complains of "burning in my throat after I eat". Describes shortness of breath moving around in bed. Mother at bedside states he has been very restless this morning. Denies feeling any better after iron infusion yesterday. Not ambulating much. - ROS shortness of breath - Objective Vital Signs Temp Pulse Resp BP BP Pulse Ox 07/28/17 09:20 133/93 H 07/28/17 08:59 98.3 F 105 H 16 133/93 H 99 07/28/17 04:00 97.7 F 105 H 20 133/90 93 L Weight 164 lb 8 oz 07/27/17 07/28/17 07/29/17 06:59 06:59 06:59 Output Total 250 700 Balance -250 -700 - Physical Examination General/Neuro: alert & oriented x3 Neck: other: (bilateral neck vein distention) Lungs: CTA Heart: RRR Abdomen: NT/ND Extremities: + edema B (trace BLE edema) - Telemetry Telemetry Rhythm: ST, L BBB - Labs Result Diagrams: 07/28/17 04:52 07/28/17 04:52 Troponin/CKMB CK-MB (CK-2) 0.8 ng/mL (0-6.6) 07/25/17 21:32 Troponin I 0.018 ng/mL (< 0.028) 07/27/17 10:07 - Assessment/Plan 1.Acute systolic HF-EF 15%-20%, BNP 2760, cont IV furosemide BID, creat today 1.65, will eventually need LHC, probable Life Vest 2.Cardiomyopathy 3.Left BBB 4.HTN-stable 5. PRETTY-S/P fe+ infusion 07/27, plan EGD/colonoscopy when HF compensated, followed by . Start pantoprazole for reflux symptoms.
--- NOTE | 2017-07-28 15:59 | PRG ---
DATE OF SERVICE: 07/28/2017 SUBJECTIVE: Mr. Sanchez feels better. He is breathing better. He is not nearly short of breath. OBJECTIVE: VITAL SIGNS: His pulse is 100, but that is improved. NECK: His neck veins are not nearly as distended. LUNGS: Clear. CARDIAC: Normal S1 and normal S2. ABDOMEN: Soft, nontender. EXTREMITIES: No edema. LABORATORY DATA: The patient's creatinine did go up to 1.65. ASSESSMENT: 1. Congestive heart failure, systolic, chronic, probably cardiomyopathy. 2. Left bundle branch block. 3. Renal insufficiency, worsened with diuresis. 4. Iron deficiency anemia. PLAN: 1. He is on Protonix. 2. We will stop furosemide. 3. Increase carvedilol. 4. Continue lisinopril. 5. Plan on cardiac catheterization on Sunday. If the patient needs endoscopy in the meantime, I thi nk he is stable to proceed at this point, if needed.
[2017-07-28] MEDS: Carvedilol 6.25 MG TAB PO SCH (16:45)
[2017-07-29] MEDS: Acetaminophen 325 MG TAB PO PRN ×2 (03:58→22:54)
[2017-07-29 06:13] LABS: Anion Gap 12 mmol/L (10-20); BUN (Urea Nitrogen) 26 mg/dL (8.4-25.7); Calc. Creatinine Clearance 56 mL/min (70-130); Calcium 8.9 mg/dL (7.8-10.44); Carbon Dioxide 26 mmol/L (22-29); Chloride 104 mmol/L (98-107); Estimated GFR-MDRD 57; Glucose 88 mg/dL (70-105); Potassium 3.9 mmol/L (3.5-5.1); Sodium 138 mmol/L (136-145)
[2017-07-29 06:19] LABS: #Eosinphils 0.1 thou/uL (0.0-0.7); #Lymphocytes 1.3 thou/uL (1.20-3.40); #Monocytes 0.7 thou/uL (0.11-0.59); #Neutrophils 4.6 thou/uL (1.40-6.50); %Basophils 0.6 % (0.0-1.0); %Eosinophils 1.1 % (0.0-10.0); %Lymphocytes 19.4 % (21.0-51.0); %Monocytes 10.4 % (0.0-10.0); %Neutrophils 68.5 % (42.0-75.0); Hemoglobin 8.7 g/dL (14.0-18.0); Mean Corpuscular HGB CONC 29.7 g/dL (32.0-36.0); Mean Corpuscular Hemoglobin 22.3 pg (27.0-31.0); Mean Corpuscular Volume 75.1 fl (80.0-94.0); Mean Platelet Volume 9.5 fL (7.4-10.4); Platelet Count 284 thou/uL (130-400); RBC Distribution Width 18.4 % (11.5-14.5); Red Blood Cell (RBC) Count 3.88 mill/uL (4.70-6.10); White Blood Cell (WBC) Count 6.7 thou/uL (4.8-10.8)
[2017-07-29] MEDS: Carvedilol 6.25 MG TAB PO SCH ×2 (09:15→17:00)
[2017-07-29] MEDS: Lisinopril 20 MG TAB PO SCH (09:16)
--- NOTE | 2017-07-29 10:07 | PDOC.CTH ---
Cardiology Progress Note - Subjective Resting, awakens easily. Denies any further chest pain/discomfort or shortness of breath. Denies reflux symptoms. Anxious to go home. Discussed possible LHC tomorrow, questions asked/answered. No overnight events, no cardiac events. - Objective Vital Signs Temp Pulse Resp BP BP Pulse Ox 07/29/17 09:15 147/90 H 07/29/17 05:24 97.7 F 99 16 126/95 H 98 07/29/17 00:40 98.1 F 100 16 126/88 100 Weight 159 lb 4.8 oz 07/28/17 07/29/17 07/30/17 06:59 06:59 06:59 Intake Total 1120 Output Total 700 1200 Balance -700 -80 - Physical Examination General/Neuro: alert & oriented x3 Neck: no JVD present Lungs: CTA, unlabored respirations Heart: RRR Abdomen: NT/ND - Telemetry Telemetry Rhythm: SR L BBB - Labs Result Diagrams: 07/29/17 05:03 07/29/17 05:03 Troponin/CKMB CK-MB (CK-2) 0.8 ng/mL (0-6.6) 07/25/17 21:32 Troponin I 0.018 ng/mL (< 0.028) 07/27/17 10:07 - Assessment/Plan 1.Acute systolic HF-EF 15%-20%, BNP 2760. Volume status improved. Creat down to 1.55 today. Plan for LHC tomorrow, check BMP, CBC in am. Eventually will likely need ICD, probable Life Vest. 2.Cardiomyopathy 3.Left BBB 4.HTN-stable 5. PRETTY-S/P fe+ infusion 07/27, plan EGD/colonoscopy when okay with . Hgb stable.
[2017-07-29] MEDS ORDERED: Communication Order-Pharmacy FS SCH (14:30)
--- NOTE | 2017-07-29 15:08 | PRG ---
DATE OF SERVICE: 07/29/2017 SUBJECTIVE: Mr. Sanchez is feeling well, no chest pain or shortness of breath. PHYSICAL EXAMINATION: VITAL SIGNS: His blood pressure is improved 122/86 and pulse is 94. LUNGS: Clear. CARDIAC: Normal S1, normal S2. ABDOMEN: Soft, nontender. EXTREMITIES: No edema. ASSESSMENT: 1. Systolic heart failure, chronic, improved. 2. Left bundle branch block. 3. Suspect cardiomyopathy. PLAN: Proceed to cardiac catheterization tomorrow. I discussed risks of stroke, heart attack, iodin e allergy, interfering with the blood supply to the leg or kidney, stent thrombosis, stent restenosis . The patient indicates he understands and wishes to proceed.
--- NOTE | 2017-07-29 15:36 | PRG ---
DATE OF SERVICE: 07/29/2017. SUBJECTIVE: Mr. Sanchez is feeling better and breathing better today. OBJECTIVE: VITAL SIGNS: Temperature is 98.0, blood pressure 122/86, pulse 94. GENERAL: He is in no acute distress, awake and alert. LUNGS: Clear to auscultation bilaterally. HEART: Regular rate and rhythm. ABDOMEN: Soft, nontender, nondistended. Bowel sounds are present. EXTREMITIES: No lower extremity edema. IMPRESSION: 1. Iron deficiency anemia. 2. Cardiomyopathy. 3. Acute renal failure, improving. PLAN: Left heart catheterization tomorrow. Following that, he can start a clear liquid diet and the n undergo bowel prep tomorrow afternoon for EGD and colonoscopy on Sunday.
[2017-07-29] MEDS: Milk Of Magnesia 30 ML UDCUP PO SCH (20:52)
[2017-07-30 05:45] LABS: Anion Gap 13 mmol/L (10-20); BUN (Urea Nitrogen) 27 mg/dL (8.4-25.7); Calc. Creatinine Clearance 55 mL/min (70-130); Calcium 8.9 mg/dL (7.8-10.44); Carbon Dioxide 24 mmol/L (22-29); Chloride 103 mmol/L (98-107); Estimated GFR-MDRD 56; Glucose 105 mg/dL (70-105); Sodium 136 mmol/L (136-145)
[2017-07-30] MEDS: Carvedilol 6.25 MG TAB PO SCH ×2 (06:26→16:29)
[2017-07-30] MEDS: Lisinopril 20 MG TAB PO SCH (06:26)
[2017-07-30] MEDS: Milk Of Magnesia 30 ML UDCUP PO SCH ×2 (06:27→20:28)
[2017-07-30] MEDS ORDERED: Lidocaine 1% (PF) 30 ML VIAL ONE (06:29)
[2017-07-30] MEDS ORDERED: Sodium Chloride 0.9% 1,000 ML IV SCH ×2 (06:30→07:49)
[2017-07-30] MEDS ORDERED: Midazolam HCl 2 mg/2 ml Vial ONE (07:15)
[2017-07-30] MEDS ORDERED: Fentanyl 100 MCG/2 ML VIAL ONE (07:15)
[2017-07-30] MEDS ORDERED: Metoprolol Tartrate 5 MG/5 ML VIAL ONE ×3 (07:25→07:43)
[2017-07-30 07:43] LABS: #Lymphocytes 1.1 thou/uL (1.20-3.40); #Monocytes 0.4 thou/uL (0.11-0.59); #Neutrophils 4.7 thou/uL (1.40-6.50); %Basophils 0.3 % (0.0-1.0); %Eosinophils 0.6 % (0.0-10.0); %Lymphocytes 17.9 % (21.0-51.0); %Monocytes 6.3 % (0.0-10.0); %Neutrophils 74.8 % (42.0-75.0); Hemoglobin 8.8 g/dL (14.0-18.0); Hypochromia SLIGHT = 6-15 cells (100X) (0-5/hpf); MDiff Complete? YES; Mean Corpuscular HGB CONC 29.6 g/dL (32.0-36.0); Mean Corpuscular Hemoglobin 22.1 pg (27.0-31.0); Mean Corpuscular Volume 74.7 fl (80.0-94.0); Mean Platelet Volume 9.3 fL (7.4-10.4); Microcytosis SLIGHT = 6-15 cells (100X) (0-5/hpf); Platelet Count 267 thou/uL (130-400); Polychromasia SLIGHT = 2-3 cells (100X) (0-2/hpf); RBC Distribution Width 18.3 % (11.5-14.5); Red Blood Cell (RBC) Count 3.96 mill/uL (4.70-6.10); Schistocytes SLIGHT = 2-5 cells (100X) (0-1/hpf); Target Cells SLIGHT = 2-5 cells (100X) (0-1/hpf); White Blood Cell (WBC) Count 6.3 thou/uL (4.8-10.8)
[2017-07-30] MEDS ORDERED: Nitroglycerin 2% Ointment 1 INCH/1 GM Packet ONE (07:45)
[2017-07-30] MEDS ORDERED: Nitroglycerin 0.4 MG TAB (25 Tab Bottle) SL PRN (07:48)
[2017-07-30] MEDS ORDERED: traMADol HCl 50 MG TAB PO PRN (07:48)
[2017-07-30] MEDS ORDERED: Sodium Chloride 0.9% 200 ML IV SCH (08:00)
[2017-07-30] MEDS ORDERED: Iopamidol 370 76% 100 ML VIAL ONE (11:13)
--- NOTE | 2017-07-30 14:49 | PRG ---
DATE OF SERVICE: 07/30/2017 SUBJECTIVE: He had a heart catheterization today. He had no acute events with that. OBJECTIVE: VITAL SIGNS: Temperature 97.8, pulse 80, blood pressure 115/88. GENERAL: He is in no acute distress, awake and alert. LUNGS: Clear to auscultation bilaterally. HEART: Regular rate and rhythm. ABDOMEN: Soft, nontender, nondistended. Bowel sounds are present. EXTREMITIES: No lower extremity edema. IMPRESSION: 1. Iron deficiency anemia. 2. Cardiomyopathy. PLAN: EGD and colonoscopy tomorrow.
[2017-07-30] MEDS ORDERED: GoLYTELY 4,000 ml Bottle PO SCH (16:00)
[2017-07-30] MEDS: Acetaminophen 325 MG TAB PO PRN (16:29)
[2017-07-31] MEDS ORDERED: Lisinopril 20 MG TAB PO SCH (09:00)
[2017-07-31] MEDS: Carvedilol 6.25 MG TAB PO SCH ×2 (09:24→17:18)
[2017-07-31] MEDS: Milk Of Magnesia 30 ML UDCUP PO SCH (09:25)
[2017-07-31] MEDS ORDERED: PROPOFOL 200 MG/20 ML VIAL ONE (14:17)
[2017-07-31] MEDS ORDERED: Promethazine HCl 25 MG/ML VIAL IM PRN (16:34)
[2017-07-31] MEDS ORDERED: Promethazine HCl 25 MG/ML VIAL SLOW IVP PRN (16:34)
[2017-07-31] MEDS ORDERED: Ondansetron HCl/PF 4 MG/2 ML Vial IVP PRN (16:34)
[2017-07-31 17:36] VITALS: BP 132/97; TEMP 96.9
--- NOTE | 2017-07-31 20:01 | PRG ---
DATE OF SERVICE: 07/31/2017 SUBJECTIVE: Mr. Sanchez underwent endoscopy today, he had some polyps removed. He wants to go home. OBJECTIVE: VITAL SIGNS: Blood pressure 132/97, pulse 86. LUNGS: Clear. CARDIAC: Normal S1 and S2. ASSESSMENT: 1. Severe cardiomyopathy. 2. Iron deficiency anemia. 3. Normal coronary arteries. 4. History of substance abuse. PLAN: 1. I had a talk with him about LifeVest. He does not wish to pursue that. 2. Stress to importance of taking medicines. He says he does not plan on taking medicines. Discuss ed with him if he does not take medicines, his prognosis will be very poor with a high probability of . He says I will see. Again, stressed the importance of taking medicines with him, it is uncl ear if he will do so. No family available today. I have not seen family during this hospitalization on any of the visits.
--- NOTE | 2017-07-31 20:15 | OP ---
DATE OF PROCEDURE: 07/31/2017 PROCEDURES: Esophagogastroduodenoscopy with biopsy, colonoscopy with polypectomy. INDICATION FOR PROCEDURES: Iron deficiency anemia. DESCRIPTION OF PROCEDURES: After the risks and benefits of the procedure were explained to the patient including risks of bleeding, infection, perforation, reaction to anesthesia and/or pain. Informed consent was obtained. The patient was then taken to the endoscopy suite where deep sedation was administered via propofol and anesthesia support. After adequate anesthesia was achieved, the standard gastroscope was introduced into the mouth with intubation of the esophagus, stomach and proximal small intestine with careful examination of the mucosa. After the completion of this portion of the exam, the bed was rotated to 180 degrees with a digital rectal exam then performed. A standard colonoscope was then introduced into the rectum and advanced to the cecum with careful examination of the mucosa upon withdrawal. The quality of the prep was good. The patient tolerated the procedures well with no immediate perioperative complications. EGD FINDINGS: Esophagus: Normal appearing mucosa was seen in the proximal, mid and distal esophagus. There was no evidence of erosions, ulcerations, mass lesions or active/recent bleeding. The diaphragmatic pinch was well seen at 44 cm while the GE junction was seen at 43 cm denoting a 1 cm hiatal hernia. Stomach: Mild to moderate diffuse mucosal erythema was seen throughout the entire stomach along with enlarged gastric rugae along the greater curvature of the stomach. There were no associated erosions, ulcerations, mass lesions or active/recent bleeding. Multiple random biopsies were then taken for evaluation of the gastric mucosa. Duodenum: Normal appearing mucosa was seen in both the duodenal bulb and second portion of the duodenum. There was no evidence of erosions, ulcerations , mass lesions or active/recent bleeding. Multiple random biopsies were taken from both the duodenal bulb and second portion for evaluation of possible celiac disease. IMPRESSION: 1. A 1 cm hiatal hernia. 2. Mild to moderate diffuse mucosal erythema seen in the entire stomach consistent with nonspecific gastropathy, which could be due to either medications H. pylori or possible malignancy (much less likely). COLONOSCOPY FINDINGS: Digital rectal examination: Normal external examination. Colon findings: Normal appearing mucosa was seen in the appendiceal orifice and ileocecal valve. Normal appearing mucosa was also seen within the cecum itself. A 1.2 cm polyp was seen in the ascending colon and completely removed with hot snare polypectomy. The polyp was retrieved and placed in a specimen jar for evaluation and additional 4-5 mm polyp was seen in the transverse colon and completely removed with cold snare polypectomy. The polyp was retrieved and placed in a specimen jar for evaluation as well. Otherwise, normal appearing mucosa was seen in the descending, sigmoid colon, and rectum. Medium sized internal hemorrhoids were seen on rectal retroflexion. IMPRESSION: 1. A 1.2 cm ascending colon polyp was seen in the ascending colon, status post hot snare polypectomy. 2. A 4-5 mm polyp seen in the transverse colon, status post cold snare polypectomy. 3. Medium sized internal hemorrhoids. 4. No etiology for iron deficiency anemia seen during this examination. RECOMMENDATIONS: 1. We will follow up on biopsy results with further studies indicated per path results. 2. We would continue to trend H&H and transfuse as necessary to maintain an H& H of 7/. 3. Continue to monitor for signs of clinical gastrointestinal bleeding. 4. With both the negative upper and lower examinations today for overt iron deficiency anemia, I would consider a capsule endoscopy as an outpatient after this admission. 5. Please have the patient follow up in the GI clinic approximately 2-3 weeks after discharge for reevaluation of iron deficiency anemia and possible scheduling of capsule endoscopy at that time. 6. Would consider non-GI sources of anemia. Given no evidence of acute or chronic GI bleeding, we will sign off at this time. Please call with any additional questions. MTDD
== END 2017-07-31 20:15 | disposition home or self-care (01) | DRG 287 ==
LOC: ERS 20:58 → ERHOLD 22:30 → 2SE 07-26 02:26 → 2NO 07-26 14:42
PROVIDERS: ADMIT Internal Medicine; ATTEND Internal Medicine
PROC: 4A023N7 Measurement of Cardiac Sampling and Pressure, Left Heart, Percutaneous Approach (ICD-10-PCS; principal; 2017-07-30)
PROC: B2111ZZ Fluoroscopy of Multiple Coronary Arteries using Low Osmolar Contrast (ICD-10-PCS; 2017-07-30)
PROC: B2151ZZ Fluoroscopy of Left Heart using Low Osmolar Contrast (ICD-10-PCS; 2017-07-30)
PROC: 0DB68ZX Excision of Stomach, Via Natural or Artificial Opening Endoscopic, Diagnostic (ICD-10-PCS; 2017-07-31)
PROC: 0DBK8ZX Excision of Ascending Colon, Via Natural or Artificial Opening Endoscopic, Diagnostic (ICD-10-PCS; 2017-07-31)
PROC: 0DBL8ZX Excision of Transverse Colon, Via Natural or Artificial Opening Endoscopic, Diagnostic (ICD-10-PCS; 2017-07-31)
PROC: 0DB98ZX Excision of Duodenum, Via Natural or Artificial Opening Endoscopic, Diagnostic (ICD-10-PCS; 2017-07-31)
DX: I11.0 Hypertensive heart disease with heart failure (principal); R18.8 Other ascites; N17.9 Acute kidney failure, unspecified; I42.9 Cardiomyopathy, unspecified; I50.23 Acute on chronic systolic (congestive) heart failure; I44.7 Left bundle-branch block, unspecified; D50.9 Iron deficiency anemia, unspecified; K59.09 Other constipation; F41.9 Anxiety disorder, unspecified; F32.9 Major depressive disorder, single episode, unspecified; F14.10 Cocaine abuse, uncomplicated; F17.210 Nicotine dependence, cigarettes, uncomplicated; F10.10 Alcohol abuse, uncomplicated; Z91.19 Patient's noncompliance with other medical treatment and regimen; K44.9 Diaphragmatic hernia without obstruction or gangrene; K29.70 Gastritis, unspecified, without bleeding; K63.5 Polyp of colon; K64.8 Other hemorrhoids; F19.10 Other psychoactive substance abuse, uncomplicated; I73.9 Peripheral vascular disease, unspecified; K76.1 Chronic passive congestion of liver; R16.0 Hepatomegaly, not elsewhere classified
CPT/HCPCS: 36415; 71045; 71275; 74177; 76942; 80048; 80053; 80306; 81003; 82553; 82728; 83540; 83550; 83690; 83880; 84484; 85025; 85379; 88305; 88312; 88342; 90471; 90732; 93005; 93010; 93306; 93458; 93798; 96374; 99152; 99153; 99406; A4216; C1769; G0009; J1644; J1940; J2001; J2250; J2704; J2916; J3010; J7050

== ENCOUNTER 2017-08-04 07:07 | Emergency (ER) | payer SELFPAY ==
[2017-08-04 07:52] LABS: Bilirubin Negative (Negative); Blood, Urine Negative (Negative); Clarity CLEAR (Clear); Glucose, Urine (Dipstick) Negative (Negative); Leukocyte Negative (Negative); Nitrite Negative (Negative); Protein, Urine (Dipstick) Negative (Neg-Trace)
[2017-08-04 08:07] LABS: #Eosinphils 0.1 thou/uL (0.0-0.7); #Lymphocytes 1.5 thou/uL (1.20-3.40); #Monocytes 0.5 thou/uL (0.11-0.59); #Neutrophils 4.4 thou/uL (1.40-6.50); %Basophils 0.7 % (0.0-1.0); %Eosinophils 0.8 % (0.0-10.0); %Lymphocytes 22.7 % (21.0-51.0); %Monocytes 7.8 % (0.0-10.0); Hemoglobin 9.5 g/dL (14.0-18.0); Mean Corpuscular HGB CONC 29.7 g/dL (32.0-36.0); Mean Corpuscular Hemoglobin 22.8 pg (27.0-31.0); Mean Corpuscular Volume 76.8 fl (80.0-94.0); Platelet Count 207 thou/uL (130-400); RBC Distribution Width 19.7 % (11.5-14.5); Red Blood Cell (RBC) Count 4.18 mill/uL (4.70-6.10); White Blood Cell (WBC) Count 6.5 thou/uL (4.8-10.8)
[2017-08-04 08:23] LABS: ALT (SGPT) 15 U/L (8-55); AST (SGOT) 17 U/L (5-34); Albumin 3.6 g/dL (3.5-5.0); Alcohol Less than 10 mg/dL (Less than 10); Alkaline Phosphatase 89 U/L (40-150); Anion Gap 14 mmol/L (10-20); BUN (Urea Nitrogen) 17 mg/dL (8.4-25.7); Bilirubin, Total 0.9 mg/dL (0.2-1.2); CK (CPK) 74 U/L (30-200); Calc. Creatinine Clearance 0 mL/min (70-130); Calcium 8.7 mg/dL (7.8-10.44); Carbon Dioxide 26 mmol/L (22-29); Chloride 105 mmol/L (98-107); Estimated GFR-MDRD 57; Globulin 2.7 g/dL (2.4-3.5); Glucose 90 mg/dL (70-105); Lipase 16 U/L (8-78); Potassium 3.7 mmol/L (3.5-5.1); Protein, Total 6.3 g/dL (6.0-8.3); Sodium 141 mmol/L (136-145)
[2017-08-04 08:31] LABS: Acanthocytes SLIGHT = 1-5 cells (100X) (None Seen); Hypochromia SLIGHT = 6-15 cells (100X) (0-5/hpf); MDiff Complete? YES; Microcytosis SLIGHT = 6-15 cells (100X) (0-5/hpf); Polychromasia SLIGHT = 2-3 cells (100X) (0-2/hpf); Schistocytes SLIGHT = 2-5 cells (100X) (0-1/hpf)
[2017-08-04] MEDS ORDERED: Lidocaine Viscous Sol 2% 15 ml UD Cup ONE (08:46)
[2017-08-04] MEDS ORDERED: Mag-Al 1200 mg/1200 mg/30 ML UDCUP ONE (08:46)
== END 2017-08-04 11:09 | disposition home or self-care (01) ==
LOC: ERS 07:07
DX: R10.10 Upper abdominal pain, unspecified (principal); R47.81 Slurred speech; I10 Essential (primary) hypertension; K74.60 Unspecified cirrhosis of liver; F41.9 Anxiety disorder, unspecified; F32.9 Major depressive disorder, single episode, unspecified; F17.210 Nicotine dependence, cigarettes, uncomplicated; Z79.899 Other long term (current) drug therapy
CPT/HCPCS: 36415; 80053; 80307; 81003; 82550; 83690; 85025; 93005; 96360; 96361

== ENCOUNTER 2017-08-07 15:13 | Emergency (ER) | payer SELFPAY ==
[2017-08-07 15:45] LABS: #Eosinphils 0.1 thou/uL (0.0-0.7); #Lymphocytes 1.4 thou/uL (1.20-3.40); #Monocytes 0.5 thou/uL (0.11-0.59); %Basophils 0.4 % (0.0-1.0); %Eosinophils 0.8 % (0.0-10.0); %Lymphocytes 23.6 % (21.0-51.0); %Monocytes 8.7 % (0.0-10.0); %Neutrophils 66.5 % (42.0-75.0); Hemoglobin 8.9 g/dL (14.0-18.0); Mean Corpuscular HGB CONC 30.8 g/dL (32.0-36.0); Mean Corpuscular Hemoglobin 22.7 pg (27.0-31.0); Mean Corpuscular Volume 73.6 fl (80.0-94.0); Mean Platelet Volume 9.6 fL (7.4-10.4); Platelet Count 236 thou/uL (130-400); RBC Distribution Width 19.7 % (11.5-14.5); Red Blood Cell (RBC) Count 3.95 mill/uL (4.70-6.10)
[2017-08-07 16:03] LABS: Acanthocytes SLIGHT = 1-5 cells (100X) (None Seen); Anisocytosis MODERATE=16-30 cells (100X) (0-5/hpf); Hypochromia SLIGHT = 6-15 cells (100X) (0-5/hpf); MDiff Complete? YES; Microcytosis SLIGHT = 6-15 cells (100X) (0-5/hpf); Ovalocytes SLIGHT = 2-5 cells (100X) (0-1/hpf); PLT Morphology Comment Appears Adequate; Polychromasia MODERATE = 3-4 cells (100X) (0-2/hpf); Schistocytes SLIGHT = 2-5 cells (100X) (0-1/hpf); Target Cells SLIGHT = 2-5 cells (100X) (0-1/hpf)
[2017-08-07 16:10] LABS: ALT (SGPT) 16 U/L (8-55); AST (SGOT) 17 U/L (5-34); Albumin 3.5 g/dL (3.5-5.0); Alkaline Phosphatase 90 U/L (40-150); Anion Gap 12 mmol/L (10-20); BUN (Urea Nitrogen) 25 mg/dL (8.4-25.7); CK (CPK) 94 U/L (30-200); Calc. Creatinine Clearance 0 mL/min (70-130); Calcium 8.8 mg/dL (7.8-10.44); Carbon Dioxide 25 mmol/L (22-29); Chloride 104 mmol/L (98-107); Estimated GFR-MDRD 53; Globulin 2.7 g/dL (2.4-3.5); Glucose 79 mg/dL (70-105); Protein, Total 6.2 g/dL (6.0-8.3); Sodium 137 mmol/L (136-145)
[2017-08-07 16:12] LABS: CKMB 0.6 ng/mL (0-6.6); Troponin I Less than 0.010 ng/mL (< 0.028)
[2017-08-07 16:33] LABS: Bilirubin Small (Negative); Blood, Urine Negative (Negative); Clarity CLEAR (Clear); Glucose, Urine (Dipstick) Negative (Negative); Leukocyte Negative (Negative); Nitrite Negative (Negative); Protein, Urine (Dipstick) Negative (Neg-Trace); Specific Gravity, Urine 1.019 (1.002-1.036); pH, Urine 5.5 (5.0-9.0)
[2017-08-07 16:45] LABS: Cocaine Metabolite Screen Detected (NotDetected); Medtox Reader # READER 1
[2017-08-07 16:46] LABS: Amphetamine Not Detected (NotDetected); Barbiturates Screen Not Detected (NotDetected); Benzodiazepine Screen Not Detected (NotDetected); Medtox Control Line Valid? VALID (VALID); Methadone Not Detected (NotDetected); Methamphetamine Not Detected (NotDetected); Opiate Screen Not Detected (NotDetected); Oxycodone Screen Not Detected (NotDetected); Phencyclidine (PCP) Not Detected (NotDetected); THC/Cannabinoid Screen Not Detected (NotDetected); Tricyclic Screen Not Detected (NotDetected)
--- NOTE | 2017-08-07 17:04 | RAD ---
CHEST ONE VIEW: HISTORY: Shortness of breath. Wheezing. COMPARISON: 07/25/2017 FINDINGS: Atherosclerosis of the aorta. Persistent cardiomegaly. Sternotomy wires are identified. The pulmonary vessels are within normal limits. The costophrenic angles are clear. Hyperinflation w ithout consolidation or mass. No pneumothorax or osseous abnormalities. IMPRESSION: 1. Cardiomegaly. 2. Atherosclerosis. 3. No acute cardiopulmonary process. POS: [facility]
[2017-08-07] MEDS ORDERED: Furosemide 40 MG/4 ML VIAL ONE (17:07)
== END 2017-08-07 17:25 | disposition home or self-care (01) ==
LOC: ERS 15:13
DX: I11.0 Hypertensive heart disease with heart failure (principal); I50.9 Heart failure, unspecified; F14.10 Cocaine abuse, uncomplicated; F32.9 Major depressive disorder, single episode, unspecified; F41.9 Anxiety disorder, unspecified; F17.210 Nicotine dependence, cigarettes, uncomplicated; Z71.6 Tobacco abuse counseling; Z79.899 Other long term (current) drug therapy
CPT/HCPCS: 36415; 71045; 80053; 80306; 81003; 82550; 82553; 83880; 84484; 85025; 93005; 96374; 99406; J1940

== ENCOUNTER 2017-08-11 05:29 | Inpatient (IN) | payer SELFPAY ==
[2017-08-11 06:24] LABS: Hemoglobin 9.1 g/dL (14.0-18.0); Mean Corpuscular Hemoglobin 22.5 pg (27.0-31.0); Mean Corpuscular Volume 75.2 fl (80.0-94.0); Mean Platelet Volume 9.2 fL (7.4-10.4); Platelet Count 273 thou/uL (130-400); RBC Distribution Width 19.5 % (11.5-14.5); Red Blood Cell (RBC) Count 4.02 mill/uL (4.70-6.10); White Blood Cell (WBC) Count 6.7 thou/uL (4.8-10.8)
[2017-08-11] MEDS ORDERED: Mag-Al 1200 mg/1200 mg/30 ML UDCUP ONE (06:29)
[2017-08-11] MEDS ORDERED: Lidocaine Viscous Sol 2% 15 ml UD Cup ONE (06:29)
[2017-08-11 06:36] LABS: ALT (SGPT) 15 U/L (8-55); AST (SGOT) 23 U/L (5-34); Albumin 3.6 g/dL (3.5-5.0); Alkaline Phosphatase 88 U/L (40-150); Anion Gap 9 mmol/L (10-20); BUN (Urea Nitrogen) 21 mg/dL (8.4-25.7); Bilirubin, Total 0.8 mg/dL (0.2-1.2); Calc. Creatinine Clearance 0 mL/min (70-130); Calcium 8.9 mg/dL (7.8-10.44); Carbon Dioxide 28 mmol/L (22-29); Chloride 104 mmol/L (98-107); Estimated GFR-MDRD 58; Globulin 2.7 g/dL (2.4-3.5); Glucose 97 mg/dL (70-105); Potassium 4.3 mmol/L (3.5-5.1); Protein, Total 6.3 g/dL (6.0-8.3); Sodium 137 mmol/L (136-145)
[2017-08-11 06:39] LABS: #Eosinphils 0.1 thou/uL (0.0-0.7); #Lymphocytes 1.5 thou/uL (1.20-3.40); #Monocytes 0.6 thou/uL (0.11-0.59); #Neutrophils 4.5 thou/uL (1.40-6.50); %Basophils 0.6 % (0.0-1.0); %Eosinophils 1.1 % (0.0-10.0); %Lymphocytes 22.7 % (21.0-51.0); %Monocytes 8.3 % (0.0-10.0); %Neutrophils 67.3 % (42.0-75.0); Acanthocytes SLIGHT = 1-5 cells (100X) (None Seen); Anisocytosis SLIGHT = 6-15 cells (100X) (0-5/hpf); Hypochromia SLIGHT = 6-15 cells (100X) (0-5/hpf); MDiff Complete? YES; Microcytosis SLIGHT = 6-15 cells (100X) (0-5/hpf); Tear Drops SLIGHT = 2-5 cells (100X) (0-1/hpf); Troponin I Less than 0.010 ng/mL (< 0.028)
[2017-08-11 06:43] LABS: CKMB 6.8 ng/mL (0-6.6)
[2017-08-11] MEDS ORDERED: Aspirin 325 MG TAB ONE (06:47)
[2017-08-11] MEDS ORDERED: Furosemide 40 MG/4 ML VIAL ONE (06:47)
[2017-08-11 08:24] VITALS: BMI 25.4
--- NOTE | 2017-08-11 08:51 | RAD ---
CHEST TWO VIEWS: HISTORY: Dyspnea. COMPARISON: None. FINDINGS: There are sternotomy wires. There is atherosclerosis of the aorta. Enlarged cardiac silhouette. Pu lmonary vessels and hilum are normal. Costophrenic angles are clear. Lungs are hyperinflated. No m asses or consolidation. No pneumothorax or osseous abnormalities. IMPRESSION: No acute cardiopulmonary process. POS: [facility]
[2017-08-11] MEDS ORDERED: Lisinopril 20 MG TAB PO SCH (09:00)
[2017-08-11] MEDS ORDERED: Carvedilol 6.25 MG TAB PO SCH ×2 (09:00→17:00)
[2017-08-11] MEDS ORDERED: Furosemide 20 MG TAB PO SCH (09:00)
[2017-08-11] MEDS ORDERED: Acetaminophen 325 MG TAB PO PRN (09:08)
[2017-08-11] MEDS ORDERED: Ketorolac Tromethamine 30 MG/ML VIAL IVP PRN (09:08)
[2017-08-11 09:41] LABS: Medtox Reader # READER 1
[2017-08-11 09:42] LABS: Amphetamine Not Detected (NotDetected); Barbiturates Screen Not Detected (NotDetected); Benzodiazepine Screen Not Detected (NotDetected); Cocaine Metabolite Screen Detected (NotDetected); Medtox Control Line Valid? VALID (VALID); Methadone Not Detected (NotDetected); Methamphetamine Not Detected (NotDetected); Opiate Screen Not Detected (NotDetected); Oxycodone Screen Not Detected (NotDetected); Phencyclidine (PCP) Not Detected (NotDetected); THC/Cannabinoid Screen Not Detected (NotDetected); Tricyclic Screen Not Detected (NotDetected)
[2017-08-11 12:52] LABS: Troponin I 0.013 ng/mL (< 0.028)
--- NOTE | 2017-08-11 15:20 | ULT ---
LIMITED ABDOMEN ULTRASOUND: HISTORY: Evaluate for ascites. COMPARISON: None. TECHNIQUE: Limited imaging of the abdomen is performed. FINDINGS: There is a small amount of free fluid around the liver. However, large pockets of fluid are not appr eciated. IMPRESSION: A small amount of perihepatic fluid. POS: [facility]
[2017-08-11 15:26] VITALS: BP 121/85; TEMP 98
[2017-08-11] MEDS ORDERED: Spironolactone 25 MG TAB PO SCH (16:00)
[2017-08-11] MEDS ORDERED: Furosemide 40 MG/4 ML VIAL SLOW IVP SCH (16:00)
[2017-08-11] MEDS ORDERED: AMOXicillin 250 MG CAP PO SCH (16:30)
[2017-08-11] MEDS ORDERED: Clarithromycin 500 MG TAB PO SCH (16:30)
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
[2017-08-12] MEDS ORDERED: Spironolactone 25 MG TAB PO SCH (08:00)
[2017-08-12] MEDS ORDERED: Furosemide 40 MG/4 ML VIAL SLOW IVP SCH (09:00)
== END 2017-08-11 18:01 | disposition home or self-care (01) | DRG 293 ==
LOC: ERS 05:29 → 2NO 08:03
PROVIDERS: ADMIT Internal Medicine; ATTEND Internal Medicine
DX: I11.0 Hypertensive heart disease with heart failure (principal); I50.23 Acute on chronic systolic (congestive) heart failure; I42.8 Other cardiomyopathies; I44.7 Left bundle-branch block, unspecified; F14.10 Cocaine abuse, uncomplicated; B96.81 Helicobacter pylori [H. pylori] as the cause of diseases classified elsewhere; K29.50 Unspecified chronic gastritis without bleeding
CPT/HCPCS: 36415; 71046; 76705; 80053; 80306; 82553; 83880; 84484; 85025; 93005; 94640; 96374; A4216; J1885; J1940; J7620

== ENCOUNTER 2017-08-12 15:33 | Emergency (ER) | payer SELFPAY ==
[2017-08-12 15:58] LABS: Hemoglobin 9.4 g/dL (14.0-18.0); Mean Corpuscular HGB CONC 30.4 g/dL (32.0-36.0); Mean Corpuscular Hemoglobin 22.3 pg (27.0-31.0); Mean Corpuscular Volume 73.4 fl (80.0-94.0); Mean Platelet Volume 9.7 fL (7.4-10.4); Platelet Count 284 thou/uL (130-400); RBC Distribution Width 19.3 % (11.5-14.5); Red Blood Cell (RBC) Count 4.21 mill/uL (4.70-6.10); White Blood Cell (WBC) Count 6.4 thou/uL (4.8-10.8)
[2017-08-12 16:08] LABS: Acetaminophen Less than 6.0 mcg/mL (10.0-30.0); Alcohol Less than 10 mg/dL (Less than 10); Salicylate Less than 8.0 mg/dL (15.0-30.0)
[2017-08-12 16:12] LABS: Anion Gap 16 mmol/L (10-20); BUN (Urea Nitrogen) 30 mg/dL (8.4-25.7); CKMB 0.6 ng/mL (0-6.6); Calc. Creatinine Clearance 0 mL/min (70-130); Calcium 9.1 mg/dL (7.8-10.44); Carbon Dioxide 23 mmol/L (22-29); Chloride 102 mmol/L (98-107); Estimated GFR-MDRD 46; Glucose 98 mg/dL (70-105); Potassium 3.9 mmol/L (3.5-5.1); Sodium 137 mmol/L (136-145); Troponin I 0.012 ng/mL (< 0.028)
[2017-08-12 16:23] LABS: #Lymphocytes 1.4 thou/uL (1.20-3.40); #Monocytes 0.7 thou/uL (0.11-0.59); #Neutrophils 4.2 thou/uL (1.40-6.50); %Basophils 0.5 % (0.0-1.0); %Eosinophils 0.6 % (0.0-10.0); %Lymphocytes 22.3 % (21.0-51.0); %Monocytes 11.1 % (0.0-10.0); %Neutrophils 65.5 % (42.0-75.0); Anisocytosis SLIGHT = 6-15 cells (100X) (0-5/hpf); Hypochromia SLIGHT = 6-15 cells (100X) (0-5/hpf); MDiff Complete? YES; Ovalocytes SLIGHT = 2-5 cells (100X) (0-1/hpf); PLT Morphology Comment Appears Adequate; Tear Drops SLIGHT = 2-5 cells (100X) (0-1/hpf)
--- NOTE | 2017-08-12 16:44 | RAD ---
ONE VIEW CHEST: History: Pain. Difficulty breathing x 3 days. Comparison: 08-07-17 FINDINGS: There are sternotomy wires. There is atherosclerosis of the aorta. Heart is enlarged. The pulmonary v essels and hilum are normal. Costophrenic angles are clear. No consolidation or mass. No pneumothorax or osseous abnormalities. IMPRESSION: Atherosclerosis. Cardiomegaly. No acute process. POS: [facility]
[2017-08-12] MEDS ORDERED: Furosemide 40 MG/4 ML VIAL ONE (16:49)
--- NOTE | 2017-08-15 14:24 | EKG ---
Test Reason : Blood Pressure : / mmHG Vent. Rate : 106 BPM Atrial Rate : 106 BPM P-R Int : 150 ms QRS Dur : 150 ms QT Int : 388 ms P-R-T Axes : 038 059 127 degrees QTc Int : 515 ms Sinus tachycardia Possible Left atrial enlargement Non-specific intra-ventricular conduction block Possible Lateral infarct , age undetermined Abnormal ECG Confirmed by LAURA VALENCIA, PATRICK ([id number]), material expeditor JEAN CRAWFORD ([id number]) on 08/15/2017 2:24:08 PM Referred By: Confirmed By:PATRICK SANCHEZ MD
== END 2017-08-12 17:16 | disposition home or self-care (01) ==
LOC: ERS 15:33
DX: I11.0 Hypertensive heart disease with heart failure (principal); I50.9 Heart failure, unspecified; F32.9 Major depressive disorder, single episode, unspecified; F41.9 Anxiety disorder, unspecified; F17.210 Nicotine dependence, cigarettes, uncomplicated; Z79.899 Other long term (current) drug therapy
CPT/HCPCS: 71045; 80048; 80307; 82553; 83880; 84484; 85025; 93005; 96374; J1940

== ENCOUNTER 2017-08-21 01:16 | Emergency (ER) | payer MEDICAID, OTHER, SELFPAY ==
[2017-08-21] MEDS ORDERED: Nitroglycerin 0.4 MG TAB (25 Tab Bottle) ONE (01:27)
[2017-08-21 02:21] LABS: #Lymphocytes 1.4 thou/uL (1.20-3.40); #Monocytes 0.6 thou/uL (0.11-0.59); #Neutrophils 4.4 thou/uL (1.40-6.50); %Basophils 0.3 % (0.0-1.0); %Eosinophils 0.6 % (0.0-10.0); %Lymphocytes 22.2 % (21.0-51.0); %Monocytes 9.3 % (0.0-10.0); %Neutrophils 67.6 % (42.0-75.0); Hemoglobin 8.5 g/dL (14.0-18.0); Mean Corpuscular HGB CONC 30.1 g/dL (32.0-36.0); Mean Corpuscular Hemoglobin 21.9 pg (27.0-31.0); Mean Corpuscular Volume 72.9 fl (80.0-94.0); Mean Platelet Volume 10.2 fL (7.4-10.4); Platelet Count 201 thou/uL (130-400); RBC Distribution Width 19.7 % (11.5-14.5); Red Blood Cell (RBC) Count 3.87 mill/uL (4.70-6.10); White Blood Cell (WBC) Count 6.5 thou/uL (4.8-10.8)
[2017-08-21 02:56] LABS: ALT (SGPT) 27 U/L (8-55); AST (SGOT) 40 U/L (5-34); Albumin 3.7 g/dL (3.5-5.0); Alkaline Phosphatase 94 U/L (40-150); Anion Gap 15 mmol/L (10-20); BUN (Urea Nitrogen) 31 mg/dL (8.4-25.7); Bilirubin, Total 1.1 mg/dL (0.2-1.2); CK (CPK) 76 U/L (30-200); Calc. Creatinine Clearance 0 mL/min (70-130); Calcium 9.2 mg/dL (7.8-10.44); Carbon Dioxide 24 mmol/L (22-29); Chloride 99 mmol/L (98-107); Estimated GFR-MDRD 48; Globulin 2.8 g/dL (2.4-3.5); Glucose 87 mg/dL (70-105); Potassium 4.7 mmol/L (3.5-5.1); Protein, Total 6.5 g/dL (6.0-8.3); Sodium 133 mmol/L (136-145)
[2017-08-21 02:57] LABS: CKMB 0.6 ng/mL (0-6.6); Troponin I Less than 0.010 ng/mL (< 0.028)
--- NOTE | 2017-08-21 08:05 | RAD ---
PORTABLE CHEST 1 VIEW: DATE: 08/21/17. TIME: 1:25 a.m. HISTORY: Hypertension. FINDINGS: Comparison is made with the exam of 08/12/17. There are changes of median sternotomy. The heart is enlarged. The lungs are expanded without focal areas of consolidation, pneumothorax, yue pulmonary edema, or pleural effusions. IMPRESSION: No acute process. POS: [facility]
--- NOTE | 2017-09-08 14:23 | EKG ---
Test Reason : CP/SOB Blood Pressure : / mmHG Vent. Rate : 101 BPM Atrial Rate : 101 BPM P-R Int : 164 ms QRS Dur : 154 ms QT Int : 416 ms P-R-T Axes : 055 079 044 degrees QTc Int : 539 ms Sinus tachycardia Possible Left atrial enlargement Left bundle branch block Abnormal ECG Confirmed by SANJAY VALENCIA, DINORA Guerrero ([id number]), news copy editor JEAN CRAWFORD ([id number]) on 09/08/2017 2:22:16 PM Referred By: SANJAY Confirmed By:DINORA GRACE MD
== END 2017-08-21 04:10 | disposition home or self-care (01) ==
LOC: ERS 01:16
DX: I11.0 Hypertensive heart disease with heart failure (principal); I50.9 Heart failure, unspecified; Z71.6 Tobacco abuse counseling; I44.7 Left bundle-branch block, unspecified; F41.9 Anxiety disorder, unspecified; F32.9 Major depressive disorder, single episode, unspecified; F17.210 Nicotine dependence, cigarettes, uncomplicated; Z79.899 Other long term (current) drug therapy
CPT/HCPCS: 71045; 80053; 82550; 82553; 83880; 84484; 85025; 93005; 99406

== ENCOUNTER 2017-08-26 05:46 | Emergency (ER) | payer SELFPAY ==
[2017-08-26 08:39] LABS: #Eosinphils 0.1 thou/uL (0.0-0.7); #Lymphocytes 1.6 thou/uL (1.20-3.40); #Monocytes 0.8 thou/uL (0.11-0.59); #Neutrophils 4.9 thou/uL (1.40-6.50); %Basophils 0.5 % (0.0-1.0); %Eosinophils 0.7 % (0.0-10.0); %Lymphocytes 21.1 % (21.0-51.0); %Monocytes 11.1 % (0.0-10.0); %Neutrophils 66.6 % (42.0-75.0); Mean Corpuscular HGB CONC 29.3 g/dL (32.0-36.0); Mean Corpuscular Hemoglobin 21.6 pg (27.0-31.0); Mean Corpuscular Volume 73.6 fl (80.0-94.0); Mean Platelet Volume 10.3 fL (7.4-10.4); Platelet Count 224 thou/uL (130-400); RBC Distribution Width 19.7 % (11.5-14.5); Red Blood Cell (RBC) Count 4.19 mill/uL (4.70-6.10); White Blood Cell (WBC) Count 7.4 thou/uL (4.8-10.8)
[2017-08-26 08:42] LABS: Hypochromia SLIGHT = 6-15 cells (100X) (0-5/hpf); MDiff Complete? YES; Microcytosis SLIGHT = 6-15 cells (100X) (0-5/hpf); Polychromasia SLIGHT = 2-3 cells (100X) (0-2/hpf); Target Cells SLIGHT = 2-5 cells (100X) (0-1/hpf)
[2017-08-26 08:47] LABS: ALT (SGPT) 21 U/L (8-55); AST (SGOT) 29 U/L (5-34); Albumin 3.9 g/dL (3.5-5.0); Alkaline Phosphatase 109 U/L (40-150); Anion Gap 16 mmol/L (10-20); BUN (Urea Nitrogen) 19 mg/dL (8.4-25.7); Bilirubin, Total 1.3 mg/dL (0.2-1.2); Calc. Creatinine Clearance 0 mL/min (70-130); Calcium 8.9 mg/dL (7.8-10.44); Carbon Dioxide 21 mmol/L (22-29); Chloride 104 mmol/L (98-107); Estimated GFR-MDRD 61; Globulin 3.1 g/dL (2.4-3.5); Glucose 86 mg/dL (70-105); Potassium 4.8 mmol/L (3.5-5.1); Sodium 136 mmol/L (136-145)
[2017-08-26 08:50] LABS: CKMB 0.7 ng/mL (0-6.6); Troponin I Less than 0.010 ng/mL (< 0.028)
--- NOTE | 2017-08-26 09:08 | RAD ---
CHEST 1 VIEW: HISTORY: Wheezing. Dyspnea. COMPARISON: 08/21/17. FINDINGS: Cardiac silhouette is magnified and enlarged. Pulmonary vasculature upper limits of normal. Mediast inum midline with postoperative changes and aortic calcification. No lobar consolidation or evidence of pneumothorax. IMPRESSION: Cardiomegaly. Chronic-type findings are stable. POS: [facility]
== END 2017-08-26 08:59 | disposition home or self-care (01) ==
LOC: ERS 05:46
DX: R06.02 Shortness of breath (principal); I11.0 Hypertensive heart disease with heart failure; I50.9 Heart failure, unspecified; I44.7 Left bundle-branch block, unspecified; F17.210 Nicotine dependence, cigarettes, uncomplicated; F41.9 Anxiety disorder, unspecified; F32.9 Major depressive disorder, single episode, unspecified; Z79.899 Other long term (current) drug therapy
CPT/HCPCS: 71045; 80053; 82553; 83880; 84484; 85025; 93005

== ENCOUNTER 2017-08-28 01:16 | Emergency (ER) | payer SELFPAY ==
[2017-08-28 02:18] LABS: #Eosinphils 0.1 thou/uL (0.0-0.7); #Lymphocytes 1.3 thou/uL (1.20-3.40); #Monocytes 0.6 thou/uL (0.11-0.59); #Neutrophils 3.9 thou/uL (1.40-6.50); %Basophils 0.5 % (0.0-1.0); %Eosinophils 1.2 % (0.0-10.0); %Lymphocytes 21.8 % (21.0-51.0); %Monocytes 10.5 % (0.0-10.0); Hemoglobin 8.7 g/dL (14.0-18.0); Mean Corpuscular HGB CONC 30.3 g/dL (32.0-36.0); Mean Corpuscular Hemoglobin 21.6 pg (27.0-31.0); Mean Corpuscular Volume 71.3 fl (80.0-94.0); Mean Platelet Volume 10.4 fL (7.4-10.4); Platelet Count 240 thou/uL (130-400); RBC Distribution Width 19.6 % (11.5-14.5); Red Blood Cell (RBC) Count 4.03 mill/uL (4.70-6.10); White Blood Cell (WBC) Count 5.9 thou/uL (4.8-10.8)
[2017-08-28 02:40] LABS: ALT (SGPT) 18 U/L (8-55); AST (SGOT) 20 U/L (5-34); Albumin 3.7 g/dL (3.5-5.0); Alkaline Phosphatase 95 U/L (40-150); Anion Gap 14 mmol/L (10-20); BUN (Urea Nitrogen) 32 mg/dL (8.4-25.7); Bilirubin, Total 1.2 mg/dL (0.2-1.2); Calc. Creatinine Clearance 0 mL/min (70-130); Carbon Dioxide 22 mmol/L (22-29); Chloride 102 mmol/L (98-107); Estimated GFR-MDRD 44; Globulin 2.5 g/dL (2.4-3.5); Glucose 95 mg/dL (70-105); Lipase 12 U/L (8-78); Potassium 4.1 mmol/L (3.5-5.1); Protein, Total 6.2 g/dL (6.0-8.3); Sodium 134 mmol/L (136-145)
[2017-08-28] MEDS ORDERED: Ondansetron ODT 4 MG TAB ONE (03:37)
[2017-08-28 04:26] LABS: Bilirubin Small (Negative); Blood, Urine Negative (Negative); Clarity CLEAR (Clear); Glucose, Urine (Dipstick) Negative (Negative); Leukocyte Negative (Negative); Nitrite Negative (Negative); Protein, Urine (Dipstick) Negative (Neg-Trace); Specific Gravity, Urine 1.018 (1.002-1.036); pH, Urine 5.5 (5.0-9.0)
--- NOTE | 2017-08-28 10:11 | CT ---
PRELIMINARY REPORT/[facility]/EMERGENTY AFTER-HOURS PROCEDURE CT Abdomen and Pelvis Without Intravenous Contrast CLINICAL HISTORY: 56 years old, male; Pain; Abdominal pain; Generalized; Patient HX: Patient reports abd pain with dist ension TECHNIQUE: Axial computed tomography images of the abdomen and pelvis without intravenous contrast. Coronal refo rmatted images were created and reviewed. COMPARISON: No relevant prior studies available. FINDINGS: Lower thorax: Moderate to severe cardiomegaly and small pericardial effusion. The lung bases are david sly clear ABDOMEN: Liver: Moderate to severe hepatomegaly No mass. Gallbladder and bile ducts: Normal. No calcified stones. No ductal dilation. Pancreas: Normal. No ductal dilation. Spleen: Normal. No splenomegaly. Adrenals: Normal. No mass. Kidneys and ureters: Normal. No hydronephrosis. Stomach and bowel: Normal. No obstruction. No mucosal thickening. Appendix: Normal. No findings to suggest acute appendicitis. PELVIS: Bladder: Unremarkable as visualized. Reproductive: Unremarkable as visualized. ABDOMEN and PELVIS: Intraperitoneal space: Moderate to large ascites No free air. No significant fluid collection. Bones/joints: No acute fracture. No dislocation. Degenerative changes in the lumbar spine Soft tissues: Unremarkable. Vasculature: Atherosclerosis No abdominal aortic aneurysm. Lymph nodes: Normal. No enlarged lymph nodes. IMPRESSION: Moderate to severe cardiomegaly and moderate to severe hepatomegaly Small pericardial effusion. Moderate to large ascites Thank you for allowing us to participate in the care of your patient. Dictated and Authenticated by: Marcos Goodman MD 08/28/2017 5:01 AM Central Time ([place] & [place]) FINAL REPORT CT ABDOMEN AND PELVIS NONCONTRAST PERFORMED ON AN EMERGENCY BASIS: Date: 08/28/17 Time: 0339 hours HISTORY: Abdominal pain and distention. COMPARISON: 07/25/17. FINDINGS: Findings agree with the preliminary report by Mona. There is no CT evidence of urinary tract obstruct ion or calcification. Lack of contrast limits evaluation for other abnormalities. Free fluid within the abdomen and pelvis has increased slightly since the previous study. Pericardial fluid is also partially visualized. POS: [facility]
== END 2017-08-28 06:23 | disposition home or self-care (01) ==
LOC: ERS 01:16
DX: R18.8 Other ascites (principal); I12.9 Hypertensive chronic kidney disease with stage 1 through stage 4 chronic kidney disease, or unspecified chronic kidney disease; N18.9 Chronic kidney disease, unspecified; D63.1 Anemia in chronic kidney disease; F17.210 Nicotine dependence, cigarettes, uncomplicated; K59.09 Other constipation; F41.9 Anxiety disorder, unspecified; F32.9 Major depressive disorder, single episode, unspecified; Z79.899 Other long term (current) drug therapy
CPT/HCPCS: 36415; 74176; 80053; 81003; 83605; 83690; 85025; 94640; 96360; J7620; Q0162

== ENCOUNTER 2017-09-04 04:50 | Emergency (ER) | payer SELFPAY ==
[2017-09-04 08:01] LABS: #Eosinphils 0.1 thou/uL (0.0-0.7); #Lymphocytes 1.4 thou/uL (1.20-3.40); #Monocytes 0.5 thou/uL (0.11-0.59); #Neutrophils 4.2 thou/uL (1.40-6.50); %Basophils 0.6 % (0.0-1.0); %Eosinophils 0.9 % (0.0-10.0); %Monocytes 8.1 % (0.0-10.0); %Neutrophils 68.4 % (42.0-75.0); Hemoglobin 8.8 g/dL (14.0-18.0); Mean Corpuscular Hemoglobin 21.7 pg (27.0-31.0); Mean Corpuscular Volume 72.3 fl (80.0-94.0); Mean Platelet Volume 9.4 fL (7.4-10.4); Platelet Count 275 thou/uL (130-400); RBC Distribution Width 19.8 % (11.5-14.5); Red Blood Cell (RBC) Count 4.06 mill/uL (4.70-6.10); White Blood Cell (WBC) Count 6.2 thou/uL (4.8-10.8)
[2017-09-04 08:08] LABS: Bilirubin Negative (Negative); Blood, Urine Negative (Negative); Clarity CLEAR (Clear); Glucose, Urine (Dipstick) Negative (Negative); Leukocyte Negative (Negative); Nitrite Negative (Negative); Protein, Urine (Dipstick) 30 mg/dL (Neg-Trace); Specific Gravity, Urine 1.018 (1.002-1.036)
[2017-09-04 08:10] LABS: Bacteria/HPF None Seen HPF (None Seen); Hyaline Casts/LPF 0-3 HYALINE CAST LPF (0-3 Hyaline); Pathc Cast-AUWi Flag 0.14 (0-2.49); RBC/HPF 0-3 HPF (0-3); Squamous Epithelial None Seen HPF (0-3); WBC/HPF 0-3 HPF (0-3)
[2017-09-04 08:17] LABS: Band 1 % (5-11); Hypochromia MODERATE=16-30 cells (100X) (0-5/hpf); Lymphocytes 19 % (21-51); MDiff Complete? YES; Microcytosis MODERATE=15-30 cells (100X) (0-5/hpf); Monocytes 9 % (0-10); Neutrophil 71 % (42-75); PLT Morphology Comment Appears Adequate; Polychromasia SLIGHT = 2-3 cells (100X) (0-2/hpf); Schistocytes SLIGHT = 2-5 cells (100X) (0-1/hpf); Spherocytes SLIGHT = 1-5 cells (100X) (None Seen); Target Cells SLIGHT = 2-5 cells (100X) (0-1/hpf)
[2017-09-04 08:22] LABS: Acetaminophen Less than 6.0 mcg/mL (10.0-30.0); Alcohol Less than 10 mg/dL (Less than 10); Salicylate Less than 8.0 mg/dL (15.0-30.0)
[2017-09-04 08:25] LABS: ALT (SGPT) 11 U/L (8-55); AST (SGOT) 17 U/L (5-34); Albumin 3.8 g/dL (3.5-5.0); Alcohol Less than 10 mg/dL (Less than 10); Alkaline Phosphatase 95 U/L (40-150); Anion Gap 13 mmol/L (10-20); BUN (Urea Nitrogen) 17 mg/dL (8.4-25.7); Bilirubin, Total 1.1 mg/dL (0.2-1.2); Calc. Creatinine Clearance 0 mL/min (70-130); Calcium 9.2 mg/dL (7.8-10.44); Carbon Dioxide 27 mmol/L (22-29); Chloride 103 mmol/L (98-107); Estimated GFR-MDRD 68; Globulin 2.7 g/dL (2.4-3.5); Glucose 94 mg/dL (70-105); Lipase 13 U/L (8-78); Potassium 3.8 mmol/L (3.5-5.1); Protein, Total 6.5 g/dL (6.0-8.3); Sodium 139 mmol/L (136-145)
[2017-09-04 09:03] LABS: CKMB 0.6 ng/mL (0-6.6); Troponin I Less than 0.010 ng/mL (< 0.028)
--- NOTE | 2017-09-04 09:28 | RAD ---
CHEST ONE VIEW: History: Chest pain. Comparison: 09-01-17 FINDINGS: Heart size is markedly enlarged. Mild edema. No pneumothorax or large effusion. Multiple median sternotomy wires. IMPRESSION: Marked cardiomegaly with developing edema. POS: [facility]
[2017-09-04] MEDS ORDERED: Furosemide 20 MG/2 ML VIAL ONE (10:10)
== END 2017-09-04 11:06 | disposition home or self-care (01) ==
LOC: ERS 04:50
DX: I11.0 Hypertensive heart disease with heart failure (principal); I50.9 Heart failure, unspecified; F41.9 Anxiety disorder, unspecified; F32.9 Major depressive disorder, single episode, unspecified; F17.210 Nicotine dependence, cigarettes, uncomplicated; Z79.899 Other long term (current) drug therapy
CPT/HCPCS: 71045; 80053; 80307; 81003; 81015; 82553; 83690; 84484; 85025; 93005; 96374; J1940

== ENCOUNTER 2017-09-05 05:06 | Emergency (ER) | payer SELFPAY | END 2017-09-05 05:36 | disposition home or self-care (01) | LOC: ERS 05:06 | DX: R10.9 Unspecified abdominal pain (principal); R53.1 Weakness; I10 Essential (primary) hypertension; I44.7 Left bundle-branch block, unspecified; F41.9 Anxiety disorder, unspecified; F32.9 Major depressive disorder, single episode, unspecified; F17.210 Nicotine dependence, cigarettes, uncomplicated; K74.60 Unspecified cirrhosis of liver; K59.09 Other constipation; Z79.899 Other long term (current) drug therapy | CPT/HCPCS: 99285 ==

== ENCOUNTER 2017-09-12 04:20 | Emergency (ER) | payer SELFPAY ==
[2017-09-12] MEDS ORDERED: Acetaminophen 500 MG TAB ONE (04:31)
== END 2017-09-12 04:45 | disposition home or self-care (01) ==
LOC: ERS 04:20
DX: R10.30 Lower abdominal pain, unspecified (principal); Z71.6 Tobacco abuse counseling; I10 Essential (primary) hypertension; I44.7 Left bundle-branch block, unspecified; F41.9 Anxiety disorder, unspecified; F32.9 Major depressive disorder, single episode, unspecified; F17.210 Nicotine dependence, cigarettes, uncomplicated; Z79.899 Other long term (current) drug therapy
CPT/HCPCS: 99406

== ENCOUNTER 2017-09-16 10:02 | Emergency (ER) | payer SELFPAY ==
[2017-09-16] MEDS ORDERED: Furosemide 40 MG/4 ML VIAL ONE (10:34)
[2017-09-16 11:08] LABS: #Eosinphils 0.1 thou/uL (0.0-0.7); #Lymphocytes 1.5 thou/uL (1.20-3.40); #Monocytes 0.6 thou/uL (0.11-0.59); #Neutrophils 3.6 thou/uL (1.40-6.50); %Basophils 0.4 % (0.0-1.0); %Lymphocytes 25.3 % (21.0-51.0); %Monocytes 10.3 % (0.0-10.0); %Neutrophils 63.1 % (42.0-75.0); Mean Corpuscular HGB CONC 29.1 g/dL (32.0-36.0); Mean Corpuscular Hemoglobin 20.6 pg (27.0-31.0); Mean Corpuscular Volume 70.8 fL (78.0-98.0); Mean Platelet Volume 10.6 fL (7.4-10.4); Platelet Count 243 thou/uL (130-400); RBC Distribution Width 19.7 % (11.5-14.5); Red Blood Cell (RBC) Count 4.35 mill/uL (4.70-6.10); White Blood Cell (WBC) Count 5.8 thou/uL (4.8-10.8)
[2017-09-16 11:23] LABS: ALT (SGPT) 11 U/L (8-55); AST (SGOT) 17 U/L (5-34); Albumin 3.8 g/dL (3.5-5.0); Alkaline Phosphatase 103 U/L (40-150); Anion Gap 14 mmol/L (10-20); BUN (Urea Nitrogen) 20 mg/dL (8.4-25.7); Bilirubin, Total 1.5 mg/dL (0.2-1.2); Calc. Creatinine Clearance 0 mL/min (70-130); Calcium 8.9 mg/dL (7.8-10.44); Carbon Dioxide 24 mmol/L (22-29); Chloride 104 mmol/L (98-107); Estimated GFR-MDRD 52; Globulin 2.8 g/dL (2.4-3.5); Glucose 93 mg/dL (70-105); Potassium 3.5 mmol/L (3.5-5.1); Protein, Total 6.6 g/dL (6.0-8.3); Sodium 138 mmol/L (136-145)
--- NOTE | 2017-09-16 11:35 | RAD ---
UPRIGHT PORTABLE CHEST 1 VIEW: Date: 09/16/17 HISTORY: 56-year-old male with history of shortness of breath and difficulty breathing. COMPARISON: 09/04/17. FINDINGS: Cardiomegaly with postop midline sternotomy. No confluent pneumonia, overt edema, or pleural effusion . IMPRESSION: Stable cardiomegaly. No overt edema or pleural effusion or confluent pneumonia. POS: [facility]
== END 2017-09-16 11:42 | disposition home or self-care (01) ==
LOC: ERS 10:02
DX: I11.0 Hypertensive heart disease with heart failure (principal); I50.9 Heart failure, unspecified; F19.10 Other psychoactive substance abuse, uncomplicated; I44.7 Left bundle-branch block, unspecified; F41.9 Anxiety disorder, unspecified; F32.9 Major depressive disorder, single episode, unspecified; F17.210 Nicotine dependence, cigarettes, uncomplicated
CPT/HCPCS: 36415; 71045; 80053; 83880; 85025; 93005; 94760; 96374; J1940

== ENCOUNTER 2017-10-30 11:21 | Emergency (ER) | payer SELFPAY ==
[2017-10-30 12:38] LABS: #Basophils 0.1 thou/uL (0.0-0.2); #Lymphocytes 1.4 thou/uL (1.20-3.40); #Monocytes 0.7 thou/uL (0.11-0.59); #Neutrophils 4.7 thou/uL (1.40-6.50); %Basophils 1.2 % (0.0-1.0); %Eosinophils 0.6 % (0.0-10.0); %Lymphocytes 20.4 % (21.0-51.0); %Monocytes 10.4 % (0.0-10.0); %Neutrophils 67.4 % (42.0-75.0); Hemoglobin 9.6 g/dL (14.0-18.0); Mean Corpuscular HGB CONC 28.6 g/dL (32.0-36.0); Mean Corpuscular Hemoglobin 20.2 pg (27.0-31.0); Mean Corpuscular Volume 70.5 fL (78.0-98.0); Mean Platelet Volume 7.5 fL (7.4-10.4); Platelet Count 281 thou/uL (130-400); RBC Distribution Width 21.3 % (11.5-14.5); Red Blood Cell (RBC) Count 4.77 mill/uL (4.70-6.10)
[2017-10-30 12:52] LABS: Acanthocytes SLIGHT = 1-5 cells (100X) (None Seen); Bite Cells SLIGHT = 2-5 cells (100X) (0-1/hpf); Burr Cells SLIGHT = 2-5 cells (100X) (0-1/hpf); Hypochromia MODERATE=16-30 cells (100X) (0-5/hpf); MDiff Complete? YES; Microcytosis MODERATE=15-30 cells (100X) (0-5/hpf); PLT Morphology Comment Appears Adequate; Polychromasia MODERATE = 3-4 cells (100X) (0-2/hpf); Reflex for Review?? NO; Schistocytes SLIGHT = 2-5 cells (100X) (0-1/hpf); Spherocytes SLIGHT = 1-5 cells (100X) (None Seen); Target Cells SLIGHT = 2-5 cells (100X) (0-1/hpf)
[2017-10-30 13:06] LABS: CKMB 0.8 ng/mL (0-6.6); Troponin I Less than 0.010 ng/mL (< 0.028)
--- NOTE | 2017-10-30 13:09 | RAD ---
AP CHEST: History: Shortness of breath. Date: 10-30-17 Comparison: 09-16-17 FINDINGS: AP chest demonstrates sternotomy wires seen. Cardiomegaly is noted. No evidence of effusions, pneumon ia, or pneumothorax is seen. IMPRESSION: Cardiomegaly. Otherwise, unremarkable AP chest. POS: [facility]
[2017-10-30 13:21] LABS: ALT (SGPT) 18 U/L (8-55); AST (SGOT) 42 U/L (5-34); Albumin 4.2 g/dL (3.5-5.0); Alkaline Phosphatase 124 U/L (40-150); Anion Gap 21 mmol/L (10-20); BUN (Urea Nitrogen) 21 mg/dL (8.4-25.7); Bilirubin, Total 2.8 mg/dL (0.2-1.2); Calc. Creatinine Clearance 0 mL/min (70-130); Carbon Dioxide 19 mmol/L (22-29); Chloride 102 mmol/L (98-107); Estimated GFR-MDRD 58; Globulin 3.3 g/dL (2.4-3.5); Glucose 73 mg/dL (70-105); Potassium 5.7 mmol/L (3.5-5.1); Protein, Total 7.5 g/dL (6.0-8.3); Sodium 136 mmol/L (136-145)
[2017-10-30] MEDS ORDERED: Furosemide 40 MG/4 ML VIAL ONE (13:57)
[2017-10-30] MEDS ORDERED: Furosemide 100 MG/10 ML VIAL ONE (14:08)
== END 2017-10-30 15:05 | disposition home or self-care (01) ==
LOC: ERS 11:21
DX: I11.0 Hypertensive heart disease with heart failure (principal); I50.9 Heart failure, unspecified; R18.8 Other ascites; Z79.899 Other long term (current) drug therapy; F32.9 Major depressive disorder, single episode, unspecified; Z87.891 Personal history of nicotine dependence
CPT/HCPCS: 36415; 71045; 80053; 82553; 83880; 84484; 85025; 96372; J1940

== ENCOUNTER 2017-11-05 01:12 | Observation (INO) | payer OTHER, SELFPAY ==
[2017-11-05 01:48] LABS: #Eosinphils 0.1 thou/uL (0.0-0.7); #Lymphocytes 1.5 thou/uL (1.20-3.40); #Monocytes 0.7 thou/uL (0.11-0.59); #Neutrophils 4.2 thou/uL (1.40-6.50); %Basophils 0.3 % (0.0-1.0); %Eosinophils 1.2 % (0.0-10.0); %Lymphocytes 22.9 % (21.0-51.0); %Monocytes 10.9 % (0.0-10.0); %Neutrophils 64.8 % (42.0-75.0); Hemoglobin 8.4 g/dL (14.0-18.0); Mean Corpuscular HGB CONC 30.1 g/dL (32.0-36.0); Mean Corpuscular Hemoglobin 21.1 pg (27.0-31.0); Mean Corpuscular Volume 70.2 fL (78.0-98.0); Mean Platelet Volume 10.2 fL (7.4-10.4); Platelet Count 258 thou/uL (130-400); RBC Distribution Width 20.6 % (11.5-14.5); Red Blood Cell (RBC) Count 3.98 mill/uL (4.70-6.10); White Blood Cell (WBC) Count 6.5 thou/uL (4.8-10.8)
[2017-11-05 02:08] LABS: Albumin 3.6 g/dL (3.5-5.0); Anion Gap 15 mmol/L (10-20); BUN (Urea Nitrogen) 20 mg/dL (8.4-25.7); Bilirubin, Total 1.7 mg/dL (0.2-1.2); Calc. Creatinine Clearance 0 mL/min (70-130); Calcium 8.9 mg/dL (7.8-10.44); Carbon Dioxide 23 mmol/L (22-29); Chloride 103 mmol/L (98-107); Estimated GFR-MDRD 59; Glucose 92 mg/dL (70-105); Potassium 3.5 mmol/L (3.5-5.1); Protein, Total 6.5 g/dL (6.0-8.3); Sodium 137 mmol/L (136-145)
[2017-11-05 02:09] LABS: ALT (SGPT) 12 U/L (8-55); AST (SGOT) 19 U/L (5-34); Alkaline Phosphatase 107 U/L (40-150); Globulin 2.9 g/dL (2.4-3.5); Lipase 17 U/L (8-78)
[2017-11-05 02:12] LABS: CKMB 0.6 ng/mL (0-6.6); Troponin I Less than 0.010 ng/mL (< 0.028)
[2017-11-05] MEDS ORDERED: Furosemide 40 MG/4 ML VIAL ONE (02:18)
[2017-11-05 02:58] LABS: Bilirubin Small (Negative); Blood, Urine Negative (Negative); Clarity CLEAR (Clear); Glucose, Urine (Dipstick) Negative (Negative); Leukocyte Moderate (Negative); Nitrite Negative (Negative); Protein, Urine (Dipstick) Trace mg/dL (Neg-Trace); Specific Gravity, Urine 1.019 (1.002-1.036); pH, Urine 5.5 (5.0-9.0)
[2017-11-05 03:01] LABS: Bacteria/HPF None Seen HPF (None Seen); Hyaline Casts/LPF 7-10 HYALINE CAST LPF (0-3 Hyaline); Pathc Cast-AUWi Flag 1.74 (0-2.49); RBC/HPF 0-3 HPF (0-3); Squamous Epithelial 0-3 HPF (0-3)
[2017-11-05 06:24] LABS: Troponin I Less than 0.010 ng/mL (< 0.028)
--- NOTE | 2017-11-05 08:21 | RAD ---
PORTABLE CHEST 1 VIEW: Date: 11/05/17 Time: 0210 hours HISTORY: Chest pain. Shortness of breath. FINDINGS: Comparison made with exam of 10/30/17. The heart is enlarged. Changes of median sternotomy are again seen. The lungs are well expanded witho ut lobar consolidation, pneumothorax, or pleural effusions. IMPRESSION: No acute cardiopulmonary process. POS: [facility]
[2017-11-05 08:49] LABS: Troponin I Less than 0.010 ng/mL (< 0.028)
[2017-11-05 09:18] LABS: Iron 18 ug/dL (65-175); Iron Binding Capacity, Total 461 mcg/dL (261-462)
[2017-11-05] MEDS ORDERED: Iron Dextran 500 MG in Sodium Chloride 0.9% 250 ML IVPB SCH (12:00)
[2017-11-05] MEDS ORDERED: Acetaminophen 325 MG TAB PO PRN (12:22)
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
[2017-11-05 14:43] VITALS: BMI 29.5
[2017-11-05] MEDS: Furosemide 20 MG/2 ML VIAL SLOW IVP SCH (15:40)
[2017-11-05] MEDS: Carvedilol 6.25 MG TAB PO SCH (16:57)
[2017-11-05] MEDS: Multivitamins, Adult 10 ML, Folic Acid 1 MG, Thiamine HCl 100 MG in Dextrose 5 %-0.45 %... IV SCH (17:23)
--- NOTE | 2017-11-05 18:06 | PRG ---
DATE OF SERVICE: 11/05/2017 SUBJECTIVE: Mr. Sanchez states he is breathing better, no complaints. OBJECTIVE: VITAL SIGNS: Blood pressure 130/96, pulse 99 and regular. LUNGS: Clear anteriorly and laterally. CARDIAC: Normal S1, normal S2. ABDOMEN: Soft, nontender. EXTREMITIES: Moderate edema. ASSESSMENT: 1. Nonischemic cardiomyopathy. 2. History of substance abuse. 3. Nonspecific intraventricular conduction delay. PLAN: 1. He is on intravenous furosemide and lisinopril. 2. Carvedilol. 3. Consideration for biventricular pacemaker can be given. I agree with drug screen. We will follo w with you.
[2017-11-05 20:09] LABS: Amphetamine Not Detected (NotDetected); Barbiturates Screen Not Detected (NotDetected); Benzodiazepine Screen Not Detected (NotDetected); Cocaine Metabolite Screen Detected (NotDetected); Medtox Control Line Valid? VALID (VALID); Medtox Reader # READER 1; Methadone Not Detected (NotDetected); Methamphetamine Not Detected (NotDetected); Opiate Screen Not Detected (NotDetected); Oxycodone Screen Not Detected (NotDetected); Phencyclidine (PCP) Not Detected (NotDetected); THC/Cannabinoid Screen Not Detected (NotDetected); Tricyclic Screen Not Detected (NotDetected)
[2017-11-05] MEDS: Dicyclomine 20 MG TAB PO PRN (20:18)
[2017-11-05] MEDS: Ondansetron ODT 4 MG TAB PO PRN (21:30)
[2017-11-05] MEDS: traMADol HCl 50 MG TAB PO PRN (23:30)
[2017-11-06 05:56] LABS: Anion Gap 15 mmol/L (10-20); BUN (Urea Nitrogen) 24 mg/dL (8.4-25.7); Calc. Creatinine Clearance 67 mL/min (70-130); Calcium 8.7 mg/dL (7.8-10.44); Carbon Dioxide 23 mmol/L (22-29); Chloride 101 mmol/L (98-107); Estimated GFR-MDRD 60; Glucose 88 mg/dL (70-105); Potassium 3.8 mmol/L (3.5-5.1); Sodium 135 mmol/L (136-145)
[2017-11-06] MEDS: Furosemide 20 MG/2 ML VIAL SLOW IVP SCH (06:25)
[2017-11-06 06:58] LABS: #Eosinphils 0.1 thou/uL (0.0-0.7); #Lymphocytes 1.5 thou/uL (1.20-3.40); #Monocytes 0.5 thou/uL (0.11-0.59); #Neutrophils 4.9 thou/uL (1.40-6.50); %Basophils 0.4 % (0.0-1.0); %Eosinophils 0.9 % (0.0-10.0); %Lymphocytes 21.3 % (21.0-51.0); %Monocytes 7.4 % (0.0-10.0); Anisocytosis SLIGHT = 6-15 cells (100X) (0-5/hpf); Elliptocytes SLIGHT = 2-5 cells (100X) (0-1/hpf); Hemoglobin 8.6 g/dL (14.0-18.0); MDiff Complete? YES; Mean Corpuscular HGB CONC 29.6 g/dL (32.0-36.0); Mean Corpuscular Hemoglobin 20.8 pg (27.0-31.0); Mean Corpuscular Volume 70.2 fL (78.0-98.0); Mean Platelet Volume 10.7 fL (7.4-10.4); Platelet Count 285 thou/uL (130-400); RBC Distribution Width 20.6 % (11.5-14.5); Red Blood Cell (RBC) Count 4.15 mill/uL (4.70-6.10); Target Cells SLIGHT = 2-5 cells (100X) (0-1/hpf)
[2017-11-06] MEDS: Ondansetron ODT 4 MG TAB PO PRN ×2 (08:18→16:17)
[2017-11-06] MEDS: Dicyclomine 20 MG TAB PO PRN ×2 (08:18→16:18)
[2017-11-06] MEDS: Lisinopril 20 MG TAB PO SCH (08:18)
[2017-11-06] MEDS: Carvedilol 6.25 MG TAB PO SCH ×2 (08:18→16:17)
--- NOTE | 2017-11-06 09:54 | PDOC.PN ---
- Subjective Encounter Start Date: 11/06/17 Encounter Start Time: 09:51 Subjective: ok - Objective Resuscitation Status: Resuscitation Status FULL:Full Resuscitation MAR Reviewed: Yes Vital Signs & Weight: Vital Signs (12 hours) Temp Pulse Resp BP BP Pulse Ox 11/06/17 08:18 131/96 H 11/06/17 08:08 98.1 F 100 20 123/98 H 98 11/06/17 08:00 98.1 F 100 20 11/06/17 06:25 97.5 F L 104 H 20 131/96 H 96 11/05/17 23:35 97.5 F L 103 H 20 116/83 94 L Weight Weight 186 lb 1.6 oz I&O: 11/05/17 11/06/17 11/07/17 06:59 06:59 06:59 Intake Total 740 Output Total 775 Balance -35 Result Diagrams: 11/06/17 04:59 11/06/17 04:59 Phys Exam - Physical Examination Neck: no JVD Respiratory: clear to auscultation bilateral Cardiovascular: RRR, no significant murmur Gastrointestinal: soft, positive bowel sounds Musculoskeletal: edema present Dx/Plan (1) Cardiomyopathy Code(s): I42.9 - CARDIOMYOPATHY, UNSPECIFIED Status: Acute Qualifiers: Cardiomyopathy type: unspecified Qualified Code(s): I42.9 - Cardiomyopathy , unspecified (2) Cirrhosis Code(s): K74.60 - UNSPECIFIED CIRRHOSIS OF LIVER Status: Chronic Qualifiers: Hepatic cirrhosis type: alcoholic cirrhosis Ascites presence: with ascites Qualified Code(s): K70.31 - Alcoholic cirrhosis of liver with ascites (3) PRETTY (iron deficiency anemia) Code(s): D50.9 - IRON DEFICIENCY ANEMIA, UNSPECIFIED Status: Acute Qualifiers: Iron deficiency anemia type: chronic blood loss Qualified Code(s): D50.0 - Iron deficiency anemia secondary to blood loss (chronic) (4) Cocaine abuse Code(s): F14.10 - COCAINE ABUSE, UNCOMPLICATED Status: Acute - Plan stable at present, will load with iv iron. then DC on home meds * .
[2017-11-06] MEDS: Sodium Ferric Gluconate 250 MG in Sodium Chloride 0.9% 100 ML IVPB SCH (11:37)
[2017-11-06] MEDS: Multivitamins, Adult 10 ML, Folic Acid 1 MG, Thiamine HCl 100 MG in Dextrose 5 %-0.45 %... IV SCH (11:38)
[2017-11-06] MEDS: traMADol HCl 50 MG TAB PO PRN ×2 (12:51→20:58)
[2017-11-06] MEDS: Furosemide 100 MG/10 ML VIAL SLOW IVP SCH (13:28)
--- NOTE | 2017-11-06 18:46 | PRG ---
DATE OF SERVICE: 11/06/2017 Mr. Sanchez had an echocardiogram done today. The ejection fraction is 15%-20%. The patient has pa radoxical septal motion compatible with left bundle branch block. The patient has had a nonischemic cardiomyopathy and has been on medicines for 3 months. We will contact Dr. Cummings to see if the patien t would qualify for biventricular pacemaker defibrillator.
[2017-11-06] MEDS ORDERED: Lorazepam 1 MG TAB PO PRN (21:57)
[2017-11-07] MEDS: Sodium Ferric Gluconate 250 MG in Sodium Chloride 0.9% 100 ML IVPB SCH (00:11)
[2017-11-07] MEDS: Furosemide 100 MG/10 ML VIAL SLOW IVP SCH (06:32)
--- NOTE | 2017-11-07 08:17 | PDOC.PN ---
- Subjective Encounter Start Date: 11/07/17 Encounter Start Time: 08:16 Subjective: no distresss resp stable - Objective Resuscitation Status: Resuscitation Status FULL:Full Resuscitation MAR Reviewed: Yes Vital Signs & Weight: Vital Signs (12 hours) Temp Pulse Resp BP BP Pulse Ox 11/07/17 04:29 97.6 F 83 20 127/83 100 11/06/17 23:35 97.6 F 89 20 120/78 90 L 11/06/17 22:21 129/99 H Weight Weight 188 lb I&O: 11/06/17 11/07/17 11/08/17 06:59 06:59 06:59 Intake Total 740 1000 Output Total 775 900 Balance -35 100 Result Diagrams: 11/06/17 04:59 11/06/17 04:59 Phys Exam - Physical Examination Neck: no JVD Respiratory: clear to auscultation bilateral Cardiovascular: RRR, no significant murmur Gastrointestinal: soft, positive bowel sounds Musculoskeletal: edema present Dx/Plan (1) Cardiomyopathy Code(s): I42.9 - CARDIOMYOPATHY, UNSPECIFIED Status: Acute Qualifiers: Cardiomyopathy type: unspecified Qualified Code(s): I42.9 - Cardiomyopathy , unspecified (2) Cirrhosis Code(s): K74.60 - UNSPECIFIED CIRRHOSIS OF LIVER Status: Chronic Qualifiers: Hepatic cirrhosis type: alcoholic cirrhosis Ascites presence: with ascites Qualified Code(s): K70.31 - Alcoholic cirrhosis of liver with ascites (3) PRETTY (iron deficiency anemia) Code(s): D50.9 - IRON DEFICIENCY ANEMIA, UNSPECIFIED Status: Acute Qualifiers: Iron deficiency anemia type: chronic blood loss Qualified Code(s): D50.0 - Iron deficiency anemia secondary to blood loss (chronic) (4) Cocaine abuse Code(s): F14.10 - COCAINE ABUSE, UNCOMPLICATED Status: Acute - Plan post loading iv iron -: cardiology has requested EP consult -: cont current tx, FU * .
[2017-11-07 08:18] VITALS: BP 114/74; TEMP 97.9
[2017-11-07] MEDS ORDERED: Furosemide 20 MG TAB PO SCH (09:00)
[2017-11-07] MEDS: Carvedilol 6.25 MG TAB PO SCH (09:09)
[2017-11-07] MEDS: Lisinopril 20 MG TAB PO SCH (09:09)
[2017-11-07] MEDS: Multivitamins, Adult 10 ML, Folic Acid 1 MG, Thiamine HCl 100 MG in Dextrose 5 %-0.45 %... IV SCH (11:10)
--- NOTE | 2017-11-07 13:06 | PRG ---
DATE OF SERVICE: 11/07/2017 Mr. Sanchez is sleeping. When he wakens he is oriented to know he is in the hospital at [place]. No chest pain or shortness of breath. PHYSICAL EXAMINATION: VITAL SIGNS: Blood pressure 114/74, pulse 90. LUNGS: Clear. CARDIAC: Normal S1, normal S2. ABDOMEN: Soft and nontender. ASSESSMENT: 1. Dilated cardiomyopathy. 2. Left bundle branch block. 3. Ongoing cocaine use. 4. Renal insufficiency stage 2, estimated GFR 60. 5. Iron deficiency anemia, status post intravenous iron. PLAN: 1. Change to oral furosemide. 2. Okay with me to be released home. 3. He was seen by Dr. Cummings who states that if the patient stops using cocaine consideration for bive ntricular defibrillator could be given. The prognosis unfortunately in this gentleman who is noncompliant with ongoing cocaine abuse is likel y very poor.
--- NOTE | 2017-11-07 13:19 | DIS ---
DATE OF ADMISSION: 11/05/2017 DATE OF DISCHARGE: 11/07/2017 PRIMARY CARE PROVIDER: Hema Martinez. DISCHARGE DISPOSITION: Home. PRIMARY DIAGNOSES: Cocaine abuse, alcohol abuse, alcoholic cirrhosis, nonischemic cardiomyopathy, ir on deficiency anemia, systolic heart failure. DISCHARGE MEDICATIONS: Aspirin 81 mg a day, Lasix 20 mg a day, lisinopril 20 mg a day, Coreg 6.25 mg a day and Bentyl 20 mg q.i.d. p.r.n. ALLERGIES: None. DIET: Renal. CODE STATUS: FULL. PENDING AT TIME OF DISCHARGE: Nothing. HOSPITAL COURSE: Patient was admitted to the hospital with stomach pain. He admits to 6 beers a day . Also, admits to recent cocaine. He was placed into the hospital. His BNP was 3500. Cardiac enzy mes were normal. Creatinine 1.5. Transaminases were normal. Hemoglobin is 8.4 with microcytic micr ochromic indices. Iron was low. Ferritin was low. He had 3+ edema. He was seen in consultation by Dr. Dhruv Spear. He was diuresed. An echocardiogram was done which showed 15%-20% EF and paradox ical septal motion consistent with left bundle branch block. His EKG revealed intraventricular condu ction defect that could be left bundle branch block. He was given IV Lasix to reduce his fluid burde n. His medicines were reinstituted. Because of his paradoxical motion from left bundle branch block , Dr. Ryan Cummings was consulted for possible biventricular pacemaker. Dr. Cummings told the patient if frank astorga cleaned up and got off the cocaine, he would consider putting one in, but not at this time. No pro cedures were done. The patient is being discharged to follow up with Michelle in 7 days. While frank astorga was in the hospital because of his iron deficiency anemia, he was loaded with IV iron. He needs a CBC, basic metabolic profile followup.
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
[2017-11-08] MEDS ORDERED: Furosemide 40 MG TAB PO SCH (09:00)
--- NOTE | 2017-11-10 15:11 | EKG ---
Test Reason : Blood Pressure : / mmHG Vent. Rate : 090 BPM Atrial Rate : 090 BPM P-R Int : 198 ms QRS Dur : 148 ms QT Int : 420 ms P-R-T Axes : 067 119 -15 degrees QTc Int : 513 ms Normal sinus rhythm Left bundle branch block Possible Left atrial enlargement Non-specific intra-ventricular conduction block Possible Lateral infarct , age undetermined Abnormal ECG Confirmed by REUBEN Lloyd, ROXI ([id number]), international editorial producer JEAN CRAWFORD ([id number]) on 11/10/2017 3:11:21 PM Referred By: Confirmed By:ROXI ALEXIS M.D.
== END 2017-11-07 13:50 | disposition home or self-care (01) ==
LOC: ERS 01:12 → INTOOBSV 04:07 → ERHOLD 04:07 → 2SW 14:50
PROVIDERS: ADMIT Internal Medicine; ATTEND Internal Medicine
DX: I50.22 Chronic systolic (congestive) heart failure (principal); I42.8 Other cardiomyopathies; N18.3 Chronic kidney disease, stage 3 (moderate); F10.10 Alcohol abuse, uncomplicated; F14.10 Cocaine abuse, uncomplicated; K70.31 Alcoholic cirrhosis of liver with ascites; D50.0 Iron deficiency anemia secondary to blood loss (chronic); I44.7 Left bundle-branch block, unspecified; Z87.891 Personal history of nicotine dependence; Z79.82 Long term (current) use of aspirin; Z79.899 Other long term (current) drug therapy; Z91.14 Patient's other noncompliance with medication regimen
CPT/HCPCS: 36415; 71045; 80048; 80053; 80306; 81003; 81015; 82140; 82553; 82728; 83540; 83550; 83690; 83880; 84484; 85025; 93005; 93306; 93798; 96365; 96366; 96367; 96374; 96375; 96376; G0378; J1750; J1940; J2916; J3411; J7042; J7050; Q0162

== ENCOUNTER 2018-05-28 09:22 | Outpatient (CLI) | payer OTHER ==
--- NOTE | 2018-05-28 12:05 | ULT ---
HEPATIC DOPPLER ULTRASOUND WITH DUPLEX EVALUATION: INDICATIONS: A 57-year-old male with a history of alcohol abuse. COMPARISON: Noncontrast CT abdomen and pelvis from [facility], dated 08/28/2017. TECHNIQUE: Rothman-scale and color Doppler with spectral Doppler images were obtained of the liver, right upper clint drant, and spleen. FINDINGS: The liver is diffusely heterogeneous with a nodular contour, consistent with changes of cirrhosis. N o focal hepatic lesion is identified. There is appropriate hepatopetal flow within the main portal vein, right and left portal veins, and s plenic vein. Appropriate flow is seen within the hepatic artery. Appropriate flow is seen within th e splenic artery. Appropriate flow is seen within the hepatic veins. The gallbladder is within normal limits. There is no sonographic Avery sign reported. The common b ile duct measures 1.8 mm, which is normal. Overlying bowel gas heavily limited evaluation of the pancreas. The spleen measures 9.3 cm in length. IMPRESSION: 1. Heterogeneous appearance of the liver with a nodular contour is suspicious for changes of early c irrhosis. There is no focal hepatic lesion to suggest the presence of underlying malignancy. 2. Appropriate hepatopetal flow is seen within the hepatic vasculature. 3. Some limitations to the examination, as detailed above. POS: TPC
== END 2018-05-28 09:23 | disposition home or self-care (01) ==
LOC: BICULT 09:22
PROVIDERS: ATTEND Physician Assistant Medical
DX: F10.10 Alcohol abuse, uncomplicated (principal); R94.5 Abnormal results of liver function studies; R18.8 Other ascites; I42.9 Cardiomyopathy, unspecified; K59.09 Other constipation; N18.9 Chronic kidney disease, unspecified; D50.9 Iron deficiency anemia, unspecified; B96.81 Helicobacter pylori [H. pylori] as the cause of diseases classified elsewhere; K76.89 Other specified diseases of liver
CPT/HCPCS: 76705

== ENCOUNTER 2018-06-03 05:15 | Emergency (ER) | payer OTHER ==
[2018-06-03 05:43] LABS: #Eosinphils 0.1 thou/uL (0.0-0.7); #Lymphocytes 1.4 thou/uL (1.20-3.40); #Monocytes 0.5 thou/uL (0.11-0.59); #Neutrophils 4.6 thou/uL (1.40-6.50); %Basophils 0.6 % (0.0-1.0); %Eosinophils 1.8 % (0.0-10.0); %Lymphocytes 20.5 % (21.0-51.0); %Monocytes 7.3 % (0.0-10.0); %Neutrophils 69.9 % (42.0-75.0); Hemoglobin 13.7 g/dL (14.0-18.0); Mean Corpuscular HGB CONC 31.9 g/dL (32.0-36.0); Mean Corpuscular Hemoglobin 27.8 pg (27.0-31.0); Mean Corpuscular Volume 87.3 fL (78.0-98.0); Mean Platelet Volume 8.7 fL (7.4-10.4); Platelet Count 218 thou/uL (130-400); RBC Distribution Width 18.2 % (11.5-14.5); Red Blood Cell (RBC) Count 4.92 mill/uL (4.70-6.10); White Blood Cell (WBC) Count 6.6 thou/uL (4.8-10.8)
[2018-06-03 06:03] LABS: ALT (SGPT) 10 U/L (8-55); AST (SGOT) 15 U/L (5-34); Albumin 4.2 g/dL (3.5-5.0); Alkaline Phosphatase 97 U/L (40-150); Anion Gap 15 mmol/L (10-20); BUN (Urea Nitrogen) 19 mg/dL (8.4-25.7); Bilirubin, Total 0.9 mg/dL (0.2-1.2); Calc. Creatinine Clearance 0 mL/min (70-130); Calcium 9.8 mg/dL (7.8-10.44); Carbon Dioxide 25 mmol/L (22-29); Chloride 104 mmol/L (98-107); Estimated GFR-MDRD 61; Globulin 2.9 g/dL (2.4-3.5); Glucose 122 mg/dL (70-105); Potassium 4.1 mmol/L (3.5-5.1); Protein, Total 7.1 g/dL (6.0-8.3); Sodium 140 mmol/L (136-145)
== END 2018-06-03 06:12 | disposition home or self-care (01) ==
LOC: ERS 05:15
DX: R11.2 Nausea with vomiting, unspecified (principal); R19.7 Diarrhea, unspecified; F41.9 Anxiety disorder, unspecified; F32.9 Major depressive disorder, single episode, unspecified; I10 Essential (primary) hypertension; F17.210 Nicotine dependence, cigarettes, uncomplicated; Z79.899 Other long term (current) drug therapy; Z79.891 Long term (current) use of opiate analgesic
CPT/HCPCS: 36415; 80053; 84484; 85025; 93005

== ENCOUNTER 2018-08-17 14:01 | Observation (INO) | payer OTHER ==
[2018-08-17 14:52] LABS: #Eosinphils 0.1 thou/uL (0.0-0.7); #Lymphocytes 1.3 thou/uL (1.20-3.40); #Monocytes 0.4 thou/uL (0.11-0.59); #Neutrophils 2.4 thou/uL (1.40-6.50); %Basophils 0.3 % (0.0-1.0); %Eosinophils 2.5 % (0.0-10.0); %Lymphocytes 30.2 % (21.0-51.0); %Monocytes 10.1 % (0.0-10.0); %Neutrophils 56.8 % (42.0-75.0); Mean Corpuscular HGB CONC 33.2 g/dL (32.0-36.0); Mean Corpuscular Hemoglobin 32.6 pg (27.0-31.0); Mean Platelet Volume 7.6 fL (7.4-10.4); Platelet Count 147 thou/uL (130-400); RBC Distribution Width 12.5 % (11.5-14.5); White Blood Cell (WBC) Count 4.3 thou/uL (4.8-10.8)
[2018-08-17 15:15] LABS: ALT (SGPT) 8 U/L (8-55); AST (SGOT) 15 U/L (5-34); Albumin 4.1 g/dL (3.5-5.0); Alkaline Phosphatase 95 U/L (40-150); Anion Gap 16 mmol/L (10-20); BUN (Urea Nitrogen) 80 mg/dL (8.4-25.7); Bilirubin, Total 0.7 mg/dL (0.2-1.2); Calc. Creatinine Clearance 0 mL/min (70-130); Calcium 8.9 mg/dL (7.8-10.44); Carbon Dioxide 21 mmol/L (22-29); Chloride 106 mmol/L (98-107); Estimated GFR-MDRD 24; Globulin 2.7 g/dL (2.4-3.5); Glucose 82 mg/dL (70-105); Potassium 5.2 mmol/L (3.5-5.1); Protein, Total 6.8 g/dL (6.0-8.3); Sodium 138 mmol/L (136-145)
[2018-08-17 15:37] LABS: CKMB 1.1 ng/mL (0-6.6)
[2018-08-17] MEDS ORDERED: Bisacodyl 5 MG TAB PO PRN (17:39)
--- NOTE | 2018-08-17 17:59 | CT ---
EXAM: CT brain without contrast HISTORY: Syncope. Frequent falls and loss of balance. COMPARISON: 03/25/2017 TECHNIQUE: Multiple contiguous axial images were obtained and a CT of the brain without contrast. FINDINGS: The brain is normal in morphology and attenuation without focal lesions or confluent areas of infarction. There is no evidence of hydrocephalus, intracranial hemorrhage, or extra-axial fluid collection. The calvarium and overlying soft tissues are unremarkable. The visualized paranasal sinuses and masto id air cells are well aerated. IMPRESSION: No evidence of acute intracranial abnormality
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
[2018-08-17] MEDS: Sodium Chloride 0.9% 1,000 ML IV SCH (18:36)
[2018-08-17 19:26] LABS: Troponin I 0.019 ng/mL (< 0.028)
[2018-08-17 19:49] VITALS: BMI 25.6
[2018-08-17 20:12] LABS: Bilirubin Negative (Negative); Blood, Urine Negative (Negative); Clarity CLEAR (Clear); Glucose, Urine (Dipstick) Negative (Negative); Leukocyte Negative (Negative); Nitrite Negative (Negative); Protein, Urine (Dipstick) Negative (Neg-Trace); pH, Urine 5.5 (5.0-9.0)
[2018-08-17 20:13] LABS: Bacteria/HPF None Seen HPF (None Seen); Hyaline Casts/LPF 0-3 HYALINE CAST LPF (0-3 Hyaline); RBC/HPF 0-3 HPF (0-3); Squamous Epithelial None Seen HPF (0-3); WBC/HPF None Seen HPF (0-3)
[2018-08-17 20:15] LABS: Urine Culture Reflex No No
[2018-08-17 20:21] LABS: Amphetamine Not Detected (NotDetected); Barbiturates Screen Not Detected (NotDetected); Benzodiazepine Screen Not Detected (NotDetected); Cocaine Metabolite Screen Detected (NotDetected); Medtox Control Line Valid? VALID (VALID); Medtox Reader # READER 4; Methadone Not Detected (NotDetected); Methamphetamine Not Detected (NotDetected); Opiate Screen Not Detected (NotDetected); Oxycodone Screen Not Detected (NotDetected); Phencyclidine (PCP) Not Detected (NotDetected); THC/Cannabinoid Screen Not Detected (NotDetected); Tricyclic Screen Not Detected (NotDetected)
[2018-08-17 23:59] LABS: Troponin I 0.018 ng/mL (< 0.028)
[2018-08-18 06:35] LABS: #Eosinphils 0.2 thou/uL (0.0-0.7); #Lymphocytes 1.3 thou/uL (1.20-3.40); #Monocytes 0.5 thou/uL (0.11-0.59); #Neutrophils 2.5 thou/uL (1.40-6.50); %Basophils 1.1 % (0.0-1.0); %Eosinophils 3.9 % (0.0-10.0); %Lymphocytes 29.1 % (21.0-51.0); %Monocytes 10.2 % (0.0-10.0); %Neutrophils 55.7 % (42.0-75.0); Hemoglobin 11.6 g/dL (14.0-18.0); Mean Corpuscular HGB CONC 33.8 g/dL (32.0-36.0); Mean Corpuscular Hemoglobin 32.7 pg (27.0-31.0); Mean Corpuscular Volume 96.7 fL (78.0-98.0); Platelet Count 141 thou/uL (130-400); RBC Distribution Width 12.2 % (11.5-14.5); Red Blood Cell (RBC) Count 3.55 mill/uL (4.70-6.10); White Blood Cell (WBC) Count 4.4 thou/uL (4.8-10.8)
[2018-08-18 06:54] LABS: Anion Gap 12 mmol/L (10-20); BUN (Urea Nitrogen) 59 mg/dL (8.4-25.7); Calc. Creatinine Clearance 44 mL/min (70-130); Calcium 8.9 mg/dL (7.8-10.44); Carbon Dioxide 23 mmol/L (22-29); Chloride 109 mmol/L (98-107); Estimated GFR-MDRD 45; Glucose 85 mg/dL (70-105); Potassium 5.4 mmol/L (3.5-5.1); Sodium 139 mmol/L (136-145)
[2018-08-18] MEDS: Sodium Chloride 0.9% 1,000 ML IV SCH (11:52)
--- NOTE | 2018-08-18 12:35 | PDOC.PN ---
- Subjective Encounter Start Date: 08/18/18 Encounter Start Time: 12:34 Patient lying in bed, he denies any events over night. He continues on gentle hydration. Orthos positive. He denies chest pain, palpitations, shortness of breath or abdominal pain. Drug screen positive for cocaine - Objective MAR Reviewed: Yes Vital Signs & Weight: Vital Signs (12 hours) Temp Pulse Resp BP BP BP BP 08/18/18 11:04 98.3 F 60 12 110/65 08/18/18 07:09 98.5 F 53 L 12 120/58 L 78/51 L 107/59 L 08/18/18 04:51 97.8 F 55 L 12 122/65 Pulse Ox 08/18/18 11:04 96 08/18/18 07:09 98 08/18/18 04:51 97 Weight Weight 157 lb 9.6 oz I&O: 08/17/18 08/18/18 08/19/18 06:59 06:59 06:59 Intake Total 840 Output Total 900 Balance -60 Result Diagrams: 08/18/18 06:15 08/18/18 06:15 Radiology Reviewed by me: Yes Phys Exam - Physical Examination Constitutional: NAD HEENT: oral pharynx no lesions Neck: supple Respiratory: no wheezing, clear to auscultation bilateral Cardiovascular: RRR, no significant murmur Gastrointestinal: soft, positive bowel sounds Musculoskeletal: pulses present Neurological: moves all 4 limbs Lymphatic: no nodes Psychiatric: normal affect, A&O x 3 Deviation from normal: Scar over anterior chest Dx/Plan (1) Syncope Code(s): R55 - SYNCOPE AND COLLAPSE Status: Acute (2) Orthostatic hypotension Code(s): I95.1 - ORTHOSTATIC HYPOTENSION Status: Acute (3) CARLY (acute kidney injury) Code(s): N17.9 - ACUTE KIDNEY FAILURE, UNSPECIFIED Status: Acute (4) Cardiomyopathy Code(s): I42.9 - CARDIOMYOPATHY, UNSPECIFIED Status: Acute Qualifiers: Cardiomyopathy type: unspecified Qualified Code(s): I42.9 - Cardiomyopathy , unspecified (5) Cocaine abuse Code(s): F14.10 - COCAINE ABUSE, UNCOMPLICATED Status: Acute (6) PRETTY (iron deficiency anemia) Code(s): D50.9 - IRON DEFICIENCY ANEMIA, UNSPECIFIED Status: Acute Qualifiers: Iron deficiency anemia type: chronic blood loss Qualified Code(s): D50.0 - Iron deficiency anemia secondary to blood loss (chronic) (7) Cirrhosis Code(s): K74.60 - UNSPECIFIED CIRRHOSIS OF LIVER Status: Chronic Qualifiers: Hepatic cirrhosis type: alcoholic cirrhosis Ascites presence: with ascites Qualified Code(s): K70.31 - Alcoholic cirrhosis of liver with ascites - Plan cont current plan of care * Continue on gentle hydration, CARLY improved * Drug screen positive for cocaine * Orthostatic BPs positive * Restart home meds, decrease carvedilol secondary to bradycardia * Await echo, will consider consult to cardiology pending results * Recheck CBC and BMP in am
--- NOTE | 2018-08-18 13:02 | PDOC.EVN ---
Event Note - Event Note Event Note: I have personally seen and examined pt, assessment and plan discussed with LADLE BUILDER, agreed with note
[2018-08-18] MEDS: Carvedilol 3.125 MG TAB PO SCH (16:14)
[2018-08-18] MEDS ORDERED: Carvedilol 6.25 MG TAB PO SCH (17:00)
[2018-08-18] MEDS ORDERED: HYDROcodone/Acetaminophen 7.5/325 mg Tablet PO PRN (21:37)
[2018-08-19 05:49] LABS: #Eosinphils 0.2 thou/uL (0.0-0.7); #Lymphocytes 1.2 thou/uL (1.20-3.40); #Monocytes 0.4 thou/uL (0.11-0.59); #Neutrophils 3.1 thou/uL (1.40-6.50); %Basophils 0.3 % (0.0-1.0); %Eosinophils 3.3 % (0.0-10.0); %Lymphocytes 24.1 % (21.0-51.0); %Monocytes 8.3 % (0.0-10.0); Hemoglobin 10.8 g/dL (14.0-18.0); Mean Corpuscular HGB CONC 32.4 g/dL (32.0-36.0); Mean Corpuscular Hemoglobin 31.3 pg (27.0-31.0); Mean Corpuscular Volume 96.8 fL (78.0-98.0); Mean Platelet Volume 7.1 fL (7.4-10.4); Platelet Count 129 thou/uL (130-400); Red Blood Cell (RBC) Count 3.46 mill/uL (4.70-6.10); White Blood Cell (WBC) Count 4.8 thou/uL (4.8-10.8)
[2018-08-19 06:06] LABS: Anion Gap 8 mmol/L (10-20); BUN (Urea Nitrogen) 39 mg/dL (8.4-25.7); Calc. Creatinine Clearance 63 mL/min (70-130); Carbon Dioxide 25 mmol/L (22-29); Chloride 108 mmol/L (98-107); Estimated GFR-MDRD 67; Glucose 82 mg/dL (70-105); Potassium 4.4 mmol/L (3.5-5.1); Sodium 137 mmol/L (136-145)
[2018-08-19] MEDS: Carvedilol 3.125 MG TAB PO SCH (08:07)
[2018-08-19] MEDS: Sodium Chloride 0.9% 1,000 ML IV SCH (08:09)
[2018-08-19 08:22] VITALS: TEMP 98
[2018-08-19] MEDS ORDERED: Lisinopril 20 MG TAB PO SCH (09:00)
[2018-08-19] MEDS ORDERED: Aspirin 81 mg Enteric Coated Tablet PO SCH (09:00)
[2018-08-19] MEDS ORDERED: Furosemide 20 MG TAB PO SCH (09:00)
[2018-08-19 09:17] VITALS: BP 118/64
--- NOTE | 2018-08-20 03:30 | DIS ---
DATE OF ADMISSION: 08/17/2018 DATE OF DISCHARGE: 08/19/2018 CHIEF COMPLAINT ON ADMISSION: Syncope. DISCHARGE DIAGNOSES: 1. Syncope secondary to dehydration/orthostatic hypotension, resolved. 2. Acute on chronic kidney injury secondary to dehydration, resolved. Creatinine was 3.31 on arrival, today is 1.34, which is back to his baseline. 3. Hyperkalemia secondary to above, resolved. 4. Chronic illicit drug abuse, tox screen positive for cocaine. 5. History of medical noncompliance. 6. Nonischemic cardiomyopathy, last EF estimated at 25% to 30%, not a candidate for ICD in the past secondary to chronic drug abuse and noncompliance. BRIEF HOSPITAL COURSE: The patient is a 57-year-old male with past medical history significant for dilated cardiomyopathy, chronic kidney disease and polysubstance abuse, who presented to the hospital after suffering a syncopal event at home. This occurred inside the patient's home after he had stood up and then fell abruptly to the ground. He had no other complaints. He denies any nausea, vomiting, chest pain, or shortness of breath. He was admitted for syncopal workup. He was provided gentle IV hydration with prompt resolution of his orthostatic hypotension. His creatinine trended down from 3.31 to 1.34 as mentioned above. The patient has ambulated the halls without any issue today. I have discussed his medications at length with him. His lisinopril along with his Lasix was held in the hospital secondary to his dehydration and kidney injury. CONDITION ON DISCHARGE: Stable. DISCHARGE DISPOSITION: Home. DISCHARGE INSTRUCTIONS: Regarding the patient's home medications, his lisinopril will continue to be held and his Coreg dose has been decreased to 3.125 mg b.i.d. I have counseled him extensively on cessation from illicit drugs, as well as tobacco cessation. He will follow up with his primary care physician at [facility] for repeat BMP to be performed in a week. At that time, if his creatinine remains at baseline. it will be reasonable to restart low-dose lisinopril along with Lasix given his chronic heart failure. I have also counseled him extensively on heart failure management, daily weights, appropriate sodium and fluid intake. The patient will be discharged home in good condition today. Care of this patient was discussed with Dr. Krause, who agrees with the above. Job ID: [id number] [facility]
--- NOTE | 2018-08-24 12:18 | EKG ---
Test Reason : Blood Pressure : / mmHG Vent. Rate : 050 BPM Atrial Rate : 050 BPM P-R Int : 206 ms QRS Dur : 158 ms QT Int : 514 ms P-R-T Axes : 069 072 057 degrees QTc Int : 468 ms Sinus bradycardia Left bundle branch block --no change from 06/03/2018 Abnormal ECG Confirmed by DEBORAH VALENCIA, ELIZABETH ([id number]), editor newspaper MICHAEL CRUZ ([id number]) on 08/24/2018 12:17:44 PM Referred By: Confirmed By:ELIZABETH CABRERA MD
== END 2018-08-19 10:12 | disposition home or self-care (01) ==
LOC: ERS 14:01 → 2SW 17:48
PROVIDERS: ADMIT Internal Medicine; ATTEND Internal Medicine
DX: E86.0 Dehydration (principal); I95.1 Orthostatic hypotension; N17.9 Acute kidney failure, unspecified; N18.3 Chronic kidney disease, stage 3 (moderate); F14.10 Cocaine abuse, uncomplicated; I42.0 Dilated cardiomyopathy; K70.31 Alcoholic cirrhosis of liver with ascites; D50.0 Iron deficiency anemia secondary to blood loss (chronic); E87.5 Hyperkalemia; R74.8 Abnormal levels of other serum enzymes; F41.9 Anxiety disorder, unspecified; F32.9 Major depressive disorder, single episode, unspecified; R00.1 Bradycardia, unspecified; F17.210 Nicotine dependence, cigarettes, uncomplicated; Z91.19 Patient's noncompliance with other medical treatment and regimen; Z79.899 Other long term (current) drug therapy
CPT/HCPCS: 36415; 70450; 80048; 80053; 80306; 81001; 82553; 84484; 85025; 93005; 93306; 96360; 96361; G0378

== ENCOUNTER 2018-11-15 11:13 | Emergency (ER) | payer OTHER ==
[2018-11-15 12:36] LABS: #Eosinphils 0.1 thou/uL (0.0-0.7); #Lymphocytes 1.3 thou/uL (1.20-3.40); #Monocytes 0.4 thou/uL (0.11-0.59); #Neutrophils 3.9 thou/uL (1.40-6.50); %Basophils 0.3 % (0.0-1.0); %Eosinophils 1.5 % (0.0-10.0); %Lymphocytes 23.3 % (21.0-51.0); %Monocytes 6.9 % (0.0-10.0); %Neutrophils 67.9 % (42.0-75.0); Hemoglobin 13.6 g/dL (14.0-18.0); Mean Corpuscular HGB CONC 33.8 g/dL (32.0-36.0); Mean Corpuscular Hemoglobin 31.4 pg (27.0-31.0); Mean Corpuscular Volume 92.8 fL (78.0-98.0); Mean Platelet Volume 7.2 fL (7.4-10.4); Platelet Count 208 thou/uL (130-400); RBC Distribution Width 11.5 % (11.5-14.5); Red Blood Cell (RBC) Count 4.34 mill/uL (4.70-6.10); White Blood Cell (WBC) Count 5.7 thou/uL (4.8-10.8)
[2018-11-15 12:58] LABS: ALT (SGPT) 7 U/L (8-55); AST (SGOT) 16 U/L (5-34); Albumin 4.4 g/dL (3.5-5.0); Alkaline Phosphatase 119 U/L (40-150); Anion Gap 14 mmol/L (10-20); BUN (Urea Nitrogen) 32 mg/dL (8.4-25.7); Bilirubin, Total 0.6 mg/dL (0.2-1.2); CK (CPK) 230 U/L (30-200); Calc. Creatinine Clearance 0 mL/min (70-130); Calcium 9.9 mg/dL (7.8-10.44); Carbon Dioxide 28 mmol/L (22-29); Chloride 100 mmol/L (98-107); Estimated GFR-MDRD 47; Globulin 3.1 g/dL (2.4-3.5); Glucose 92 mg/dL (70-105); Potassium 4.7 mmol/L (3.5-5.1); Protein, Total 7.5 g/dL (6.0-8.3); Sodium 137 mmol/L (136-145)
== END 2018-11-15 13:22 | disposition home or self-care (01) ==
LOC: ERS 11:13
DX: R07.89 Other chest pain (principal); I10 Essential (primary) hypertension; K74.60 Unspecified cirrhosis of liver; F41.9 Anxiety disorder, unspecified; F32.9 Major depressive disorder, single episode, unspecified; F17.210 Nicotine dependence, cigarettes, uncomplicated; Z79.82 Long term (current) use of aspirin; Z79.899 Other long term (current) drug therapy
CPT/HCPCS: 80053; 82550; 84484; 85025; 93005

== ENCOUNTER 2018-12-06 17:58 | Emergency (ER) | payer OTHER ==
[2018-12-06] MEDS ORDERED: Lidocaine Viscous Sol 2% 15 ml UD Cup ONE (18:10)
[2018-12-06] MEDS ORDERED: Famotidine/PF 20 mg/2ml Vial ONE (18:10)
[2018-12-06] MEDS ORDERED: Mag-Al 1200 mg/1200 mg/30 ML UDCUP ONE (18:10)
[2018-12-06] MEDS ORDERED: Famotidine 20 MG TAB ONE (18:12)
[2018-12-06 18:23] LABS: #Eosinphils 0.2 thou/uL (0.0-0.7); #Lymphocytes 1.5 thou/uL (1.20-3.40); #Monocytes 0.5 thou/uL (0.11-0.59); #Neutrophils 2.8 thou/uL (1.40-6.50); %Basophils 0.8 % (0.0-1.0); %Eosinophils 3.5 % (0.0-10.0); %Lymphocytes 30.4 % (21.0-51.0); %Neutrophils 56.3 % (42.0-75.0); Hemoglobin 11.4 g/dL (14.0-18.0); Mean Corpuscular HGB CONC 33.6 g/dL (32.0-36.0); Mean Corpuscular Hemoglobin 31.6 pg (27.0-31.0); Mean Corpuscular Volume 94.2 fL (78.0-98.0); Mean Platelet Volume 6.6 fL (7.4-10.4); Platelet Count 192 thou/uL (130-400); RBC Distribution Width 11.5 % (11.5-14.5); Red Blood Cell (RBC) Count 3.59 mill/uL (4.70-6.10)
[2018-12-06 18:44] LABS: ALT (SGPT) 9 U/L (8-55); AST (SGOT) 12 U/L (5-34); Alkaline Phosphatase 102 U/L (40-150); Anion Gap 13 mmol/L (10-20); BUN (Urea Nitrogen) 32 mg/dL (8.4-25.7); Bilirubin, Total 0.3 mg/dL (0.2-1.2); CK (CPK) 139 U/L (30-200); Calc. Creatinine Clearance 0 mL/min (70-130); Calcium 9.1 mg/dL (7.8-10.44); Carbon Dioxide 23 mmol/L (22-29); Chloride 104 mmol/L (98-107); Estimated GFR-MDRD 35; Globulin 2.8 g/dL (2.4-3.5); Glucose 82 mg/dL (70-105); Potassium 4.9 mmol/L (3.5-5.1); Protein, Total 6.8 g/dL (6.0-8.3); Sodium 135 mmol/L (136-145)
--- NOTE | 2018-12-06 18:47 | RAD ---
Portable frontal chest radiograph: 12/06/2018 COMPARISON: 11/05/2017 HISTORY: Dizziness, chest pain FINDINGS: Midline sternotomy wires and mediastinal clips are noted. No pneumothorax, pleural fluid, f ocal consolidation, or alveolar edema. Stable prominence of the cardiac silhouette. IMPRESSION: No focal consolidation or alveolar edema.
--- NOTE | 2018-12-07 12:12 | EKG ---
Test Reason : Blood Pressure : / mmHG Vent. Rate : 064 BPM Atrial Rate : 064 BPM P-R Int : 222 ms QRS Dur : 160 ms QT Int : 452 ms P-R-T Axes : 054 028 005 degrees QTc Int : 466 ms Sinus rhythm with 1st degree A-V block Left bundle branch block Abnormal ECG Unchanged from 11/16/2018 Confirmed by JANES CELESTE D.O. ([id number]), associate entertainment editor MICHAEL CRUZ ([id number]) on 12/07/2018 12:12:46 PM Referred By: Confirmed By:JANES CELESTE D.O.
== END 2018-12-06 19:53 | disposition home or self-care (01) ==
LOC: ERS 17:58
DX: K29.00 Acute gastritis without bleeding (principal); I10 Essential (primary) hypertension; F41.9 Anxiety disorder, unspecified; F32.9 Major depressive disorder, single episode, unspecified; Z87.891 Personal history of nicotine dependence; Z79.899 Other long term (current) drug therapy; Z79.82 Long term (current) use of aspirin
CPT/HCPCS: 36415; 71045; 80053; 82550; 83880; 84484; 85025; 93005; 96360; S0028

== ENCOUNTER 2018-12-17 09:40 | Emergency (ER) | payer OTHER ==
[2018-12-17 10:10] LABS: #Eosinphils 0.1 thou/uL (0.0-0.7); #Lymphocytes 1.3 thou/uL (1.20-3.40); #Monocytes 0.4 thou/uL (0.11-0.59); #Neutrophils 3.3 thou/uL (1.40-6.50); %Basophils 0.7 % (0.0-1.0); %Eosinophils 2.6 % (0.0-10.0); %Lymphocytes 25.3 % (21.0-51.0); %Monocytes 8.2 % (0.0-10.0); %Neutrophils 63.3 % (42.0-75.0); Hemoglobin 11.7 g/dL (14.0-18.0); Mean Corpuscular HGB CONC 33.5 g/dL (32.0-36.0); Mean Corpuscular Hemoglobin 31.4 pg (27.0-31.0); Mean Corpuscular Volume 93.7 fL (78.0-98.0); Mean Platelet Volume 6.3 fL (7.4-10.4); Platelet Count 185 thou/uL (130-400); RBC Distribution Width 11.9 % (11.5-14.5); Red Blood Cell (RBC) Count 3.73 mill/uL (4.70-6.10); White Blood Cell (WBC) Count 5.3 thou/uL (4.8-10.8)
[2018-12-17 10:30] LABS: ALT (SGPT) 9 U/L (8-55); AST (SGOT) 9 U/L (5-34); Alkaline Phosphatase 102 U/L (40-110); Anion Gap 9 mmol/L (10-20); BUN (Urea Nitrogen) 26 mg/dL (8.4-25.7); Bilirubin, Total 0.6 mg/dL (0.2-1.2); Calc. Creatinine Clearance 0 mL/min (70-130); Calcium 9.1 mg/dL (7.8-10.44); Carbon Dioxide 29 mmol/L (22-29); Chloride 99 mmol/L (98-107); Estimated GFR-MDRD 54; Globulin 2.8 g/dL (2.4-3.5); Glucose 97 mg/dL (70-105); Potassium 4.2 mmol/L (3.5-5.1); Protein, Total 6.8 g/dL (6.0-8.3); Sodium 133 mmol/L (136-145)
== END 2018-12-17 11:40 | disposition home or self-care (01) ==
LOC: ERS 09:40
DX: E86.0 Dehydration (principal); I10 Essential (primary) hypertension; F41.9 Anxiety disorder, unspecified; F32.9 Major depressive disorder, single episode, unspecified; Z87.891 Personal history of nicotine dependence; Z79.899 Other long term (current) drug therapy; Z79.82 Long term (current) use of aspirin
CPT/HCPCS: 36415; 80053; 84484; 85025; 93005; 94760; 96360; 96361

== ENCOUNTER 2018-12-18 13:45 | Emergency (ER) | payer OTHER ==
[2018-12-18 14:28] LABS: #Eosinphils 0.1 thou/uL (0.0-0.7); #Lymphocytes 1.1 thou/uL (1.20-3.40); #Monocytes 0.4 thou/uL (0.11-0.59); #Neutrophils 3.7 thou/uL (1.40-6.50); %Basophils 0.7 % (0.0-1.0); %Eosinophils 1.6 % (0.0-10.0); %Lymphocytes 20.1 % (21.0-51.0); %Monocytes 6.9 % (0.0-10.0); %Neutrophils 70.6 % (42.0-75.0); Hemoglobin 11.8 g/dL (14.0-18.0); Mean Corpuscular HGB CONC 33.6 g/dL (32.0-36.0); Mean Corpuscular Hemoglobin 31.4 pg (27.0-31.0); Mean Corpuscular Volume 93.4 fL (78.0-98.0); Mean Platelet Volume 6.5 fL (7.4-10.4); Platelet Count 182 thou/uL (130-400); RBC Distribution Width 11.9 % (11.5-14.5); Red Blood Cell (RBC) Count 3.77 mill/uL (4.70-6.10); White Blood Cell (WBC) Count 5.2 thou/uL (4.8-10.8)
[2018-12-18 14:51] LABS: ALT (SGPT) 7 U/L (8-55); AST (SGOT) 11 U/L (5-34); Albumin 3.9 g/dL (3.5-5.0); Alkaline Phosphatase 102 U/L (40-110); Anion Gap 8 mmol/L (10-20); BUN (Urea Nitrogen) 21 mg/dL (8.4-25.7); Bilirubin, Total 0.6 mg/dL (0.2-1.2); Calc. Creatinine Clearance 0 mL/min (70-130); Calcium 8.9 mg/dL (7.8-10.44); Carbon Dioxide 26 mmol/L (22-29); Chloride 101 mmol/L (98-107); Estimated GFR-MDRD 64; Globulin 2.8 g/dL (2.4-3.5); Glucose 92 mg/dL (70-105); Potassium 4.2 mmol/L (3.5-5.1); Protein, Total 6.7 g/dL (6.0-8.3); Sodium 131 mmol/L (136-145)
[2018-12-18 15:01] LABS: Bilirubin Negative (Negative); Blood, Urine Negative (Negative); Clarity Clear (Clear); Glucose, Urine (Dipstick) Normal (Negative); Leukocyte Negative Leu/uL (Negative); Nitrite Negative (Negative); Protein, Urine (Dipstick) Negative (Neg-Trace); Urobilinogen Normal mg/dL (Less than 2)
--- NOTE | 2018-12-18 15:13 | CT ---
CT HEAD WITHOUT CONTRAST: Date: 12/18/18 INDICATION: Headache. Lightheadedness and dizziness. COMPARISON: CT head dated 08/17/18. FINDINGS: Ventricles have normal size and position. No evidence of intracranial mass or infarct. No evidence of hemorrhage. IMPRESSION: No acute abnormality. POS: OFF
--- NOTE | 2018-12-18 15:31 | RAD ---
PORTABLE CHEST: Date: 12/18/18 HISTORY: Lightheadedness. COMPARISON: 12/06/18. FINDINGS: Lung yi are clear. Heart and mediastinum unremarkable. Postop sternotomy changes are noted. IMPRESSION: No acute chest finding. POS: OFF
[2018-12-18] MEDS ORDERED: Acetaminophen 500 MG TAB ONE (15:42)
[2018-12-18] MEDS ORDERED: Meclizine HCl 25 MG TAB ONE (15:47)
--- NOTE | 2018-12-21 14:43 | EKG ---
Test Reason : DIZZINESS Blood Pressure : / mmHG Vent. Rate : 052 BPM Atrial Rate : 052 BPM P-R Int : 228 ms QRS Dur : 162 ms QT Int : 482 ms P-R-T Axes : 055 023 058 degrees QTc Int : 448 ms Sinus bradycardia with 1st degree A-V block Left bundle branch block Abnormal ECG Confirmed by FARZANA MENDOSA DO ([id number]), field map editor JEAN CRAWFORD ([id number]) on 12/21/2018 2:42:19 PM Referred By: Confirmed By:FARZANA MENDOSA DO
== END 2018-12-18 15:51 | disposition home or self-care (01) ==
LOC: ERS 13:45
DX: R51 Headache (principal); I10 Essential (primary) hypertension; R42 Dizziness and giddiness; K74.60 Unspecified cirrhosis of liver; F41.9 Anxiety disorder, unspecified; F32.9 Major depressive disorder, single episode, unspecified; Z87.891 Personal history of nicotine dependence; Z79.891 Long term (current) use of opiate analgesic; Z79.82 Long term (current) use of aspirin; Z79.899 Other long term (current) drug therapy
CPT/HCPCS: 36415; 70450; 71045; 80053; 81003; 82140; 83880; 84484; 85025; 93005; J8597

== ENCOUNTER 2018-12-18 17:08 | Emergency (ER) | payer OTHER | END 2018-12-18 17:30 | disposition left against medical advice (07) | LOC: ERS 17:08 | DX: Z53.21 Procedure and treatment not carried out due to patient leaving prior to being seen by health care provider (principal) | CPT/HCPCS: 36415; 70450; 71045; 80053; 81003; 82140; 83880; 84484; 85025; 93005; 93010; J8597 ==

== ENCOUNTER 2021-01-11 22:27 | Emergency (ER) | payer OTHER ==
[2021-01-12] MEDS ORDERED: Ketorolac Tromethamine 30 MG/ML VIAL ONE (01:19)
== END 2021-01-12 03:22 | disposition home or self-care (01) ==
LOC: ERS 22:27
DX: S39.012A Strain of muscle, fascia and tendon of lower back, initial encounter (principal); I11.0 Hypertensive heart disease with heart failure; I50.9 Heart failure, unspecified; X58.XXXA Exposure to other specified factors, initial encounter
CPT/HCPCS: 72100; 96372; J1885

== ENCOUNTER 2021-04-09 06:32 | Emergency (ER) | payer OTHER ==
[2021-04-09] MEDS ORDERED: Acetaminophen 500 MG TAB ONE (07:42)
[2021-04-09 19:53] LABS: SARS-CoV-2 PCR by NAA DETECTED (NotDetected)
== END 2021-04-09 07:50 | disposition home or self-care (01) ==
LOC: ERS 06:32
DX: U07.1 COVID-19 (principal); I11.0 Hypertensive heart disease with heart failure; I50.9 Heart failure, unspecified; Z79.899 Other long term (current) drug therapy
CPT/HCPCS: 99284; U0003; U0005

== ENCOUNTER 2021-09-27 08:22 | Emergency (ER) | payer OTHER ==
[2021-09-27] MEDS ORDERED: Lidocaine 1% PF 5 ML VIAL ONE (08:45)
[2021-09-27] MEDS ORDERED: Boostrix 0.5 ML (Tdap) VIAL ONE (09:47)
== END 2021-09-27 09:55 | disposition home or self-care (01) ==
LOC: ERS 08:22
DX: L02.414 Cutaneous abscess of left upper limb (principal); I11.0 Hypertensive heart disease with heart failure; I50.9 Heart failure, unspecified; Z23 Encounter for immunization; Z87.891 Personal history of nicotine dependence; Z79.899 Other long term (current) drug therapy
CPT/HCPCS: 10060; 90471; 90715

== ENCOUNTER 2021-12-20 10:18 | Emergency (ER) | payer OTHER ==
[2021-12-20] MEDS ORDERED: Ketorolac Tromethamine 30 MG/ML VIAL ONE (12:36)
== END 2021-12-20 13:05 | disposition home or self-care (01) ==
LOC: ERS 10:18
DX: S92.352A Displaced fracture of fifth metatarsal bone, left foot, initial encounter for closed fracture (principal); I11.0 Hypertensive heart disease with heart failure; I50.9 Heart failure, unspecified; W22.09XA Striking against other stationary object, initial encounter
CPT/HCPCS: 96372; J1885

== ENCOUNTER 2022-02-18 11:25 | Emergency (ER) | payer OTHER ==
[2022-02-18] MEDS ORDERED: Ketorolac Tromethamine 30 MG/ML VIAL ONE (12:22)
== END 2022-02-18 12:24 | disposition home or self-care (01) ==
LOC: ERS 11:25
DX: S16.1XXA Strain of muscle, fascia and tendon at neck level, initial encounter (principal); M62.830 Muscle spasm of back; I10 Essential (primary) hypertension; V89.2XXA Person injured in unspecified motor-vehicle accident, traffic, initial encounter; Z79.82 Long term (current) use of aspirin; Z79.899 Other long term (current) drug therapy
CPT/HCPCS: 96372; 99283; J1885

== ENCOUNTER 2022-06-09 12:27 | Emergency (ER) | payer OTHER, MEDICAID ==
[2022-06-09 13:55] LABS: #Eosinphils 0.1 thou/uL (0.0-0.7); #Lymphocytes 1.1 thou/uL (1.20-3.40); #Monocytes 0.4 thou/uL (0.11-0.59); #Neutrophils 5.6 thou/uL (1.40-6.50); %Basophils 0.1 % (0.0-1.0); %Eosinophils 0.9 % (0.0-10.0); %Lymphocytes 14.9 % (21.0-51.0); %Monocytes 5.6 % (0.0-10.0); %Neutrophils 78.5 % (42.0-75.0); Hemoglobin 14.2 g/dL (14.0-18.0); Mean Corpuscular HGB CONC 33.2 g/dL (32.0-36.0); Mean Corpuscular Hemoglobin 32.8 pg (27.0-31.0); Mean Corpuscular Volume 98.8 fl (78.0-98.0); Mean Platelet Volume 7.8 fL (7.4-10.4); Platelet Count 176 10x3/uL (130-400); RBC Distribution Width 11.7 % (11.5-14.5); Red Blood Cell (RBC) Count 4.33 mill/uL (4.70-6.10); White Blood Cell (WBC) Count 7.2 10x3/uL (4.8-10.8)
[2022-06-09 14:17] LABS: ALT (SGPT) 8 U/L (8-55); AST (SGOT) 17 U/L (5-34); Albumin 3.8 g/dL (3.5-5.0); Alkaline Phosphatase 66 U/L (40-110); Anion Gap 12 mmol/L (10-20); BUN (Urea Nitrogen) 9 mg/dL (8.4-25.7); Bilirubin, Total 0.7 mg/dL (0.2-1.2); Calc. Creatinine Clearance 0 mL/min (70-130); Calcium 8.5 mg/dL (7.8-10.44); Carbon Dioxide 21 mmol/L (22-29); Chloride 107 mmol/L (98-107); Estimated GFR 70; Globulin 2.8 g/dL (2.4-3.5); Glucose 91 mg/dL (70-105); Protein, Total 6.6 g/dL (6.0-8.3); Sodium 136 mmol/L (136-145)
== END 2022-06-09 15:59 | disposition home or self-care (01) ==
LOC: ERS 12:27
DX: S09.90XA Unspecified injury of head, initial encounter (principal); I11.0 Hypertensive heart disease with heart failure; I50.9 Heart failure, unspecified; W01.198A Fall on same level from slipping, tripping and stumbling with subsequent striking against other object, initial encounter; Z79.82 Long term (current) use of aspirin
CPT/HCPCS: 36415; 70450; 80053; 83690; 84484; 85025; 93005; 94760

== ENCOUNTER 2022-11-22 11:36 | Emergency (ER) | payer OTHER ==
[2022-11-22] MEDS ORDERED: Boostrix 0.5 ML (Tdap) VIAL (>/=7 yrs of age) ONE (12:01)
[2022-11-22] MEDS ORDERED: traMADol HCl 50 MG TAB ONE (12:01)
[2022-11-22] MEDS ORDERED: Ketorolac Tromethamine 30 MG/ML VIAL ONE (12:04)
== END 2022-11-22 13:02 | disposition home or self-care (01) ==
LOC: ERS 11:36
DX: S62.634A Displaced fracture of distal phalanx of right ring finger, initial encounter for closed fracture (principal); S61.316A Laceration without foreign body of right little finger with damage to nail, initial encounter; I11.0 Hypertensive heart disease with heart failure; I50.9 Heart failure, unspecified; Z79.82 Long term (current) use of aspirin; W18.30XA Fall on same level, unspecified, initial encounter
CPT/HCPCS: 90471; 90715; J1885

== ENCOUNTER 2023-02-01 09:38 | Emergency (ER) | payer OTHER ==
[2023-02-01] MEDS ORDERED: Ketorolac Tromethamine 30 MG/ML VIAL ONE (10:46)
== END 2023-02-01 11:49 | disposition home or self-care (01) ==
LOC: ERS 09:38
DX: S16.1XXA Strain of muscle, fascia and tendon at neck level, initial encounter (principal); I10 Essential (primary) hypertension; E78.5 Hyperlipidemia, unspecified; Z79.899 Other long term (current) drug therapy; Z87.891 Personal history of nicotine dependence; V89.0XXA Person injured in unspecified motor-vehicle accident, nontraffic, initial encounter
CPT/HCPCS: 71045; 96372; J1885

== ENCOUNTER 2023-02-24 01:21 | Emergency (ER) | payer OTHER ==
[2023-02-24 02:14] LABS: #Eosinphils 0.1 thou/uL (0.0-0.7); #Monocytes 0.4 thou/uL (0.11-0.59); #Neutrophils 4.9 thou/uL (1.40-6.50); %Basophils 0.6 % (0.0-1.0); %Eosinophils 1.6 % (0.0-10.0); %Lymphocytes 20.6 % (21.0-51.0); %Monocytes 5.8 % (0.0-10.0); %Neutrophils 71.3 % (42.0-75.0); Hematocrit 34.9 % (42.0-52.0); Hemoglobin 11.8 g/dL (14.0-18.0); Mean Corpuscular HGB CONC 33.8 g/dL (32.0-36.0); Mean Corpuscular Volume 94.6 fl (78.0-98.0); Platelet Count 168 10x3/uL (130-400); RBC Distribution Width 11.7 % (11.5-14.5); Red Blood Cell (RBC) Count 3.69 mill/uL (4.70-6.10); White Blood Cell (WBC) Count 6.9 10x3/uL (4.8-10.8)
[2023-02-24 02:40] LABS: Troponin I Less than 0.010 ng/mL (< 0.028)
[2023-02-24 02:43] LABS: ALT (SGPT) Less than 7 U/L (8-55); AST (SGOT) 11 U/L (5-34); Albumin 3.7 g/dL (3.5-5.0); Alkaline Phosphatase 61 U/L (40-110); Anion Gap 10 mmol/L (10-20); BUN (Urea Nitrogen) 9 mg/dL (8.4-25.7); Bilirubin, Total 1.4 mg/dL (0.2-1.2); Calc. Creatinine Clearance 0 mL/min (70-130); Calcium 8.3 mg/dL (7.8-10.44); Carbon Dioxide 26 mmol/L (22-29); Chloride 101 mmol/L (98-107); Estimated GFR 71; Globulin 2.4 g/dL (2.4-3.5); Glucose 103 mg/dL (70-105); Potassium 3.7 mmol/L (3.5-5.1); Protein, Total 6.1 g/dL (6.0-8.3); Sodium 133 mmol/L (136-145)
[2023-02-24] MEDS ORDERED: Furosemide 40 MG/4 ML VIAL ONE (05:24)
== END 2023-02-24 06:14 | disposition home or self-care (01) ==
LOC: ERS 01:21
DX: I11.0 Hypertensive heart disease with heart failure (principal); I50.9 Heart failure, unspecified; E78.5 Hyperlipidemia, unspecified; Z79.899 Other long term (current) drug therapy; Z79.891 Long term (current) use of opiate analgesic
CPT/HCPCS: 36415; 71045; 80053; 83880; 84484; 85025; 93005; 94640; 96374; J1940

== ENCOUNTER 2023-05-03 10:08 | Emergency (ER) | payer OTHER | END 2023-05-03 11:11 | disposition home or self-care (01) | LOC: ERS 10:08 | DX: R51.9 Headache, unspecified (principal); I11.0 Hypertensive heart disease with heart failure; I50.9 Heart failure, unspecified; E78.5 Hyperlipidemia, unspecified; Z87.891 Personal history of nicotine dependence | CPT/HCPCS: 99284 ==